=== PATIENT | female | born 1945 | race Caucasian/White ===

== ENCOUNTER 2019-11-26 17:07 | Emergency (ER) | payer MEDICARE, MEDICAID, SELFPAY ==
[2019-11-26] VITALS (10 sets, daily range): BP systolic 143–178; BP diastolic 64–84; PULSE 63–75; RESP 17–21; TEMP 36.6–37.3; O2SAT 86–98; BMI 25.4
--- NOTE | 2019-11-26 17:17 | ED_ITS ---
Entered by Peyton Alicea, acting as scribe for Zara Lawson HPI - Abdominal Pain General: Chief Complaint: Abdominal Pain Stated Complaint: ABD PAIN Time Seen by Provider: 11/26/19 17:13 Source: patient Mode of arrival: EMS Limitations: no limitations History of Present Illness: HPI narrative: 74 yo Female presents to ED from [facility] with complaint of right lower quadrant abdominal pain. Pt states that the pain started this morning. Pt states she was sick yesterday and had diarrhea this morning. Pt states that she had a bloody bowel movement today. MD elicited complaint: abdominal pain Onset (ago): hour(s) (this morning) Location: RLQ Pain scale (0-10): 3 Exacerbating factors: nothing Relieving factors: nothing Associated Symptoms: Reports change in bowel habits, diarrhea and hematochezia; Denies chills, dysuria, fever(s), hematuria and syncope Review of Systems General: Reports: other (negative unless marked) Const: Denies: fever, chills, body aches, fatigue, malaise or diaphoresis Eyes: Denies: change in vision or blurry vision ENMT: Denies: throat pain, painful swallowing, hoarseness, ear pain, ear discharge, Change in hearing or nasal discharge Card: Denies: chest pain, palpitations, irregular heart rhythm, syncope, pre- syncope, shortness of breath on exertion or shortness of breath when lying down Resp: Denies: shortness of breath, productive cough, non-productive cough, wheezing, coughing up blood or chest congestion GI: Reports: abdominal pain, diarrhea, change in bowel habits and blood in stool : Denies: flank pain, painful urination, urinary frequency, urinary urgency, decreased urine ouput, urinary incontinence or blood in urine Musc: Denies: neck pain, back pain, extremity pain, extremity swelling, joint pain, joint swelling, joint warmth or joint stiffness Skin/Breast: Denies: rash, skin tenderness or yellow skin Neuro: Denies: headache, numbness in extremities, weakness in extremities, changes in sensation, lack of coordination, difficulty walking, dizziness, vertigo or confusion Endo: Denies: excessive thirst, tired all the time, cold intolerance, excessive sweating, flushing or hot flashes Marco/Lymph: Denies: easy bruising, easy bleeding, petechiae or enlarged lymph nodes All/Imm: Denies: hives, throat swelling, tongue swelling, facial swelling or acute wheezing PFSH ED PFSH: Statuses (acute, chronic, etc) shown below reflect problem list status as previously entered and may not be historically accurate Medical History (Updated 11/26/19 @ 20:25 by Zara Lawson) Anxiety (Acute) Cancer (Acute) COPD (chronic obstructive pulmonary disease) (Acute) Diabetes (Acute) DVT (deep venous thrombosis) (Acute) GERD (gastroesophageal reflux disease) (Acute) HTN (hypertension) (Acute) Hyperlipidemia (Acute) Hyponatremia (Acute) Myocardial infarction (Acute) Renal failure (Acute) Surgical History (Updated 11/26/19 @ 17:44 by Peyton Alicea) History of bariatric surgery (Acute) History of hysterectomy (Acute) Social History Smoking and tobacco status: former smoker Physical Exam Const: COMMON NORMALS: no apparent distress, oriented x3, no limitations, healthy appearing and well nourished EXAM LIMITATIONS: no altered mental status GENERAL APPEARANCE: cooperative, well kempt and well developed ORIENTATION/CONSCIOUSNESS: Yes awake HENMT: COMMON NORMALS: normocephalic, head/scalp atraumatic, hearing grossly normal bilaterally, external ears normal, EAC's normal, external nose normal and moist oral mucous membranes HEAD & SCALP: normal to inspection, normocephalic and atraumatic FACE & SINUS: normal facial exam and face symmetric NOSE: external nose normal and nares normal EXTERNAL EAR: Yes external ears normal EXTERNAL AUDITORY CANAL: EAC's normal MOUTH: oral and palatal mucosa normal and tongue normal Eye: COMMON NORMALS: PERRL, EOMs intact bilaterally, conjunctivae normal and no scleral icterus GENERAL EYE: normal appearance of both eyes and normal light reflex CONJUNCTIVA: Yes conjunctivae normal SCLERA: sclerae normal CORNEA: Yes corneas normal PUPIL: Yes PERRL DIRECT OPHTHALMOSCOPY: Yes normal light reflex Neck/C-Spine: COMMON NORMALS: full ROM, no lymphadenopathy, supple, no meningeal signs and no JVD GENERAL: Yes normal visual inspection and Yes trachea midline CERVICAL SPINE: Yes cervical ROM normal Chest: COMMONS NORMALS: inspection of chest normal and palpation of chest normal Resp: COMMON NORMALS: normal respiratory effort, no retractions, no use of accessory muscles and clear to auscultation bilaterally EFFORT & INSPECTION: Yes able to speak in complete sentences AUSCULTATION: clear to auscultation bilaterally Cardio: COMMON NORMALS: no JVD, regular rate, regular rhythm, S1 normal heart sound, S2 normal heart sound, no gallops, no clicks, no murmurs and no rub JUGULAR VENOUS DISTENTION: no JVD RATE: regular rate RHYTHM: regular rhythm HEART SOUNDS: S1 normal and S2 normal GI: COMMON NORMALS: soft to palpation, non-tender, no hepatosplenomegaly and no masses INSPECTION: Yes normal to inspection PALPATION: Yes soft and Yes no hepatosplenomegaly : COMMON NORMALS: Yes no CVA tenderness BLADDER/KIDNEY EXAM: Yes no CVA tenderness Back/Pelvis: COMMON NORMALS: no CVA tenderness, thoracic and lumbar spine normal to inspection, no thoracic nor lumbar tenderness and thoraco-lumbar ROM normal Extremity: COMMON NORMALS: normal to inspection, full ROM, normal capillary refill, no joint enlargement, no clubbing, cyanosis or edema and no calf tenderness Neuro: COMMON NORMALS: oriented x3, CN's II-XII intact bilaterally, moves all extremities, no focal motor deficits and no sensory deficits noted MENINGEAL SIGNS: Yes no meningeal signs Psych: COMMON NORMALS: mental status grossly normal, thought process normal, cooperative, affect normal, speech normal and activity/motor behavior normal APPEARANCE: Yes well kempt SPEECH: Yes normal speech THOUGHT PROCESS: normal thought process Skin: COMMON NORMALS: no rashes or lesions noted, skin turgor normal, no jaundice, no petechiae and no mottling GENERAL SKIN EXAM: no rashes or lesions noted and turgor normal Course Vital Signs: Vital signs: Vital Signs Temperature 98.1 F 11/26/19 21:50 Pulse Rate 66 11/26/19 21:50 Respiratory Rate 18 11/26/19 21:50 Blood Pressure 164/74 11/26/19 21:50 Pulse Oximetry 98 11/26/19 21:15 MDM - Abdominal Pain MDM Narrative: Medical decision making narrative: Patient has a GI bleed with melena. Her hemoglobin is low and she will need an ICU bed which we do not have at this time. I reviewed the case in full with Dr. Mcgill at [facility] and he will accept the patient in transfer. Lab Data: Labs: Lab Results 11/26/19 11/26/19 11/26/19 Range/Units 17:44 17:44 17:44 WBC 9.2 (4.0-10.0) 10^3/ uL RBC 2.42 L (4.1-5.3) 10^6/u L Hgb 7.3 L (11.5-15.3) g/dL Hct 23.6 L (37.0-47.0) % MCV 97.5 (81-99) fL MCH 30.2 (28.0-34.0) pg MCHC 30.9 (30.0-36.0) g/dL RDW 13.6 (12.1-15.1) % Plt Count 227 (130-400) 10^3/c mm MPV 10.0 (7.4-10.4) fL Neut % (Auto) 69.0 % Lymph % (Auto) 24.7 % Arthur % (Auto) 4.9 % Eos % (Auto) 0.7 % Baso % (Auto) 0.3 % Neut # (Auto) 6.4 (1.8-7.7) 10^3/u L Lymph # (Auto) 2.3 (0.8-4.8) 10^3/u L Arthur # (Auto) 0.5 (0.2-0.9) 10^3/u L Eos # (Auto) 0.1 (0.0-0.8) 10^3/u L Baso # (Auto) 0.0 (0.0-0.1) 10^3/u L Nucleated RBC % (a uto) 0 % Nucleated RBCs # 0.0 /100WBC PT 15.10 H (10.5-13.3) SECO NDS INR 1.15 (0.8-1.2) APTT 29.1 (23.9-36.7) SECO NDS Sodium 131 L (136-145) mmol/L Potassium 4.6 (3.5-5.1) mmol/L Chloride 96 L (98-107) mmol/L Carbon Dioxide 20 L (22-29) mmol/L Anion Gap 19.6 H (5-19) BUN 84 H* (8-23) mg/dL Creatinine 2.3 H (0.5-0.9) mg/dL Glucose 114 H (74-106) mg/dL Lactic Acid (0.5-2.2) mmol/L Calcium 9.6 (8.8-10.2) mg/Dl Total Bilirubin 0.2 (0.15-1.2) mg/dL AST 20 (0-32) U/L ALT 10 (0-33) U/L Alkaline Phosphata se 270 H (35-105) IU/L Troponin T Baselin e (0-10) ng/mL Troponin T 120 Min penelope (0-10) ng/mL Delta Troponin T (0-10) ABS# Total Protein 6.8 (6.6-8.7) g/dL Albumin 3.8 (3.5-5.2) g/dL Globulin 3.0 (1.3-4.6) g/dL Blood Type Antibody Screen Crossmatch 11/26/19 11/26/19 11/26/19 Range/Units 17:44 18:43 18:43 WBC (4.0-10.0) 10^3/ uL RBC (4.1-5.3) 10^6/u L Hgb (11.5-15.3) g/dL Hct (37.0-47.0) % MCV (81-99) fL MCH (28.0-34.0) pg MCHC (30.0-36.0) g/dL RDW (12.1-15.1) % Plt Count (130-400) 10^3/c mm MPV (7.4-10.4) fL Neut % (Auto) % Lymph % (Auto) % Arthur % (Auto) % Eos % (Auto) % Baso % (Auto) % Neut # (Auto) (1.8-7.7) 10^3/u L Lymph # (Auto) (0.8-4.8) 10^3/u L Arthur # (Auto) (0.2-0.9) 10^3/u L Eos # (Auto) (0.0-0.8) 10^3/u L Baso # (Auto) (0.0-0.1) 10^3/u L Nucleated RBC % (a uto) % Nucleated RBCs # /100WBC PT (10.5-13.3) SECO NDS INR (0.8-1.2) APTT (23.9-36.7) SECO NDS Sodium (136-145) mmol/L Potassium (3.5-5.1) mmol/L Chloride (98-107) mmol/L Carbon Dioxide (22-29) mmol/L Anion Gap (5-19) BUN (8-23) mg/dL Creatinine (0.5-0.9) mg/dL Glucose (74-106) mg/dL Lactic Acid 1.3 (0.5-2.2) mmol/L Calcium (8.8-10.2) mg/Dl Total Bilirubin (0.15-1.2) mg/dL AST (0-32) U/L ALT (0-33) U/L Alkaline Phosphata se (35-105) IU/L Troponin T Baselin e 35 H (0-10) ng/mL Troponin T 120 Min penelope (0-10) ng/mL Delta Troponin T (0-10) ABS# Total Protein (6.6-8.7) g/dL Albumin (3.5-5.2) g/dL Globulin (1.3-4.6) g/dL Blood Type A Positive Antibody Screen Negative Crossmatch See Detail 11/26/19 Range/Units 20:25 WBC (4.0-10.0) 10^3/ uL RBC (4.1-5.3) 10^6/u L Hgb (11.5-15.3) g/dL Hct (37.0-47.0) % MCV (81-99) fL MCH (28.0-34.0) pg MCHC (30.0-36.0) g/dL RDW (12.1-15.1) % Plt Count (130-400) 10^3/c mm MPV (7.4-10.4) fL Neut % (Auto) % Lymph % (Auto) % Arthur % (Auto) % Eos % (Auto) % Baso % (Auto) % Neut # (Auto) (1.8-7.7) 10^3/u L Lymph # (Auto) (0.8-4.8) 10^3/u L Arthur # (Auto) (0.2-0.9) 10^3/u L Eos # (Auto) (0.0-0.8) 10^3/u L Baso # (Auto) (0.0-0.1) 10^3/u L Nucleated RBC % (a uto) % Nucleated RBCs # /100WBC PT (10.5-13.3) SECO NDS INR (0.8-1.2) APTT (23.9-36.7) SECO NDS Sodium (136-145) mmol/L Potassium (3.5-5.1) mmol/L Chloride (98-107) mmol/L Carbon Dioxide (22-29) mmol/L Anion Gap (5-19) BUN (8-23) mg/dL Creatinine (0.5-0.9) mg/dL Glucose (74-106) mg/dL Lactic Acid (0.5-2.2) mmol/L Calcium (8.8-10.2) mg/Dl Total Bilirubin (0.15-1.2) mg/dL AST (0-32) U/L ALT (0-33) U/L Alkaline Phosphata se (35-105) IU/L Troponin T Baselin e (0-10) ng/mL Troponin T 120 Min penelope 36.29 H (0-10) ng/mL Delta Troponin T 1.29 (0-10) ABS# Total Protein (6.6-8.7) g/dL Albumin (3.5-5.2) g/dL Globulin (1.3-4.6) g/dL Blood Type Antibody Screen Crossmatch Imaging Data ^: CT Abd/Pel: Radiologist's impression: [place] [id number] CT Scan Report Signed Patient: Lindsey Mcnair JMR#: [id number] : 3Acct:[id number] Age/Sex: 74 / FADM Date: 11/26/19 Loc: ER Attending Dr: Ordering Physician: Zara Lawson DO Date of Service: 11/26/19 Procedure(s): CT abdomen pelvis wo con [id number] Accession Number(s): [id number] cc: Zara Lawson DO~ PROCEDURE INFORMATION: Exam: CT Abdomen And Pelvis Without Contrast Exam date and time: 11/26/2019 6:15 PM Age: 74 years old Clinical indication: Abdominal pain; Generalized TECHNIQUE: Imaging protocol: Computed tomography of the abdomen and pelvis without contrast. Total DLP: 723.44 mGy-cm Radiation optimization: All CT scans at this facility use at least one of these dose optimization techniques: automated exposure control; mA and/or kV adjustment per patient size (includes targeted exams where dose is matched to clinical indication); or iterative reconstruction. COMPARISON: CT abdomen pelvis wo con [id number] 09/19/2018 11:26 AM FINDINGS: Tubes, catheters and devices: There is a neurostimulator device. Lungs: Nonspecific bibasilar consolidation is present, consistent with atelectasis, edema, or pneumonia. Mediastinum: A moderate hiatal hernia is present. Liver: Unremarkable.No mass. Gallbladder and bile ducts: There has been a cholecystectomy. Pancreas: Normal. No ductal dilation. Spleen: Normal. No splenomegaly. Adrenals: Normal. No mass. Kidneys and ureters: There is unchanged renal cortical atrophy. Unchanged renal cysts are noted. There is no hydronephrosis or nephrolithiasis. Stomach and bowel: Extensive diverticulosis is present in the distal colon. The wall of the sigmoid colon appears mildly thickened similar to the prior exam. This may reflect mild colitis or just lack of distension. There is no new bowel thickening. No ileus or obstruction. Appendix: No evidence of appendicitis. Intraperitoneal space: Unremarkable. No free air. No significant fluid collection. Vasculature: Moderate to severe atherosclerotic changes are noted in the abdominal aorta. There is unchanged 3.2 cm aneurysmal dilatation of the distal. Lymph nodes: Unremarkable.No enlarged lymph nodes. Bladder: The bladder is obscured by arthroplasty artifact. Reproductive: Unremarkable as visualized. Bones/joints: Unremarkable. No acute fracture. Soft tissues: Unremarkable. CT/CT abdomen pelvis con [id number] IMPRESSION: 1. Nonspecific bibasilar consolidation is present, consistent with atelectasis, edema, or pneumonia. 2. Unchanged 3.2 cm aneurysmal dilatation of the distal abdominal aorta. 3. The wall of the distal colon appears mildly thickened unchanged since the prior exam. This may reflect recurrence mild colitis or just lack of distension. Radiation Dose CTDIVOL = (mGy): DLP = 723.44 (mGy-cm) Dictated By: Fadia Landis 11/26/191941 Signed By: Fadia Landis 11/26/191943 Discharge Plan Discharge Patient Disposition: Xfer Short-Term Hosp Clinical Impression: GI bleed Qualifiers: GI bleed type/associated pathology: melena Qualified Code(s): K92.1 - Melena Anemia Qualifiers: Anemia type: other cause Other causes of anemia: other cause, not classified Qualified Code(s): D64.89 - Other specified anemias Condition: Stable Referrals: Nasreen Montana MD [Family Provider] - Discharge Date/Time: 11/26/19 22:14 Coding Level of Care Code ED [employer] for Chg Fwd Exam Problem Focused The documentation recorded by the Deanne davey Carmen, accurately reflects the service I personally performed and the decisions made by Renny muñoz Eli N Nov 26, 2019 17:07
--- NOTE | 2019-11-26 17:24 | CTR_ITS ---
PROCEDURE INFORMATION: Exam: CT Abdomen And Pelvis Without Contrast Exam date and time: 11/26/2019 6:15 PM Age: 74 years old Clinical indication: Abdominal pain; Generalized TECHNIQUE: Imaging protocol: Computed tomography of the abdomen and pelvis without contrast. Total DLP: 723.44 mGy-cm Radiation optimization: All CT scans at this facility use at least one of these dose optimization techniques: automated exposure control; mA and/or kV adjustment per patient size (includes targeted exams where dose is matched to clinical indication); or iterative reconstruction. COMPARISON: CT abdomen pelvis wo con [id number] 09/19/2018 11:26 AM FINDINGS: Tubes, catheters and devices: There is a neurostimulator device. Lungs: Nonspecific bibasilar consolidation is present, consistent with atelectasis, edema, or pneumonia. Mediastinum: A moderate hiatal hernia is present. Liver: Unremarkable.No mass. Gallbladder and bile ducts: There has been a cholecystectomy. Pancreas: Normal. No ductal dilation. Spleen: Normal. No splenomegaly. Adrenals: Normal. No mass. Kidneys and ureters: There is unchanged renal cortical atrophy. Unchanged renal cysts are noted. There is no hydronephrosis or nephrolithiasis. Stomach and bowel: Extensive diverticulosis is present in the distal colon. The wall of the sigmoid colon appears mildly thickened similar to the prior exam. This may reflect mild colitis or just lack of distension. There is no new bowel thickening. No ileus or obstruction. Appendix: No evidence of appendicitis. Intraperitoneal space: Unremarkable. No free air. No significant fluid collection. Vasculature: Moderate to severe atherosclerotic changes are noted in the abdominal aorta. There is unchanged 3.2 cm aneurysmal dilatation of the distal. Lymph nodes: Unremarkable.No enlarged lymph nodes. Bladder: The bladder is obscured by arthroplasty artifact. Reproductive: Unremarkable as visualized. Bones/joints: Unremarkable. No acute fracture. Soft tissues: Unremarkable. CT/CT abdomen pelvis wo con [id number] IMPRESSION: 1. Nonspecific bibasilar consolidation is present, consistent with atelectasis, edema, or pneumonia. 2. Unchanged 3.2 cm aneurysmal dilatation of the distal abdominal aorta. 3. The wall of the distal colon appears mildly thickened unchanged since the prior exam. This may reflect recurrence mild colitis or just lack of distension. Radiation Dose CTDIVOL = (mGy): DLP = 723.44 (mGy-cm)
--- NOTE | 2019-11-26 17:25 | XR_ITS ---
WS: [id number] PORTABLE CHEST HISTORY: cough COMPARISON: 09/26/2018 Slight elevation of the LEFT hemidiaphragm is stable. Diffuse coarsened interstitial markings. There is a more focal increasing interstitial opacification at the RIGHT lung base. Vasculature remains nor mal. No pleural effusion or pneumothorax. Cardiac size: Normal. Mediastinum/Aorta: Moderate atherosclerosis aorta. Prior RIGHT humeral head replacement. Rib fractures in the lateral RIGHT thorax. XR/XR chest 1V portable [id number] IMPRESSION: 1. New subsegmental opacification at the RIGHT lung base suspicious for atelec tasis or pneumonitis. 2. Chronic emphysema and atherosclerosis aorta.
[2019-11-26 18:07] LABS: Basophils % 0.3 %; Eosinophils # 0.1 10^3/uL (0.0-0.8); Eosinophils % 0.7 %; Hematocrit 23.6 % (37.0-47.0); Hemoglobin 7.3 g/dL (11.5-15.3); Lymphocytes # 2.3 10^3/uL (0.8-4.8); Lymphocytes % 24.7 %; Mean Corpuscular HGB Conc 30.9 g/dL (30.0-36.0); Mean Corpuscular Hemoglobin 30.2 pg (28.0-34.0); Mean Corpuscular Volume 97.5 fL (81-99); Monocytes # 0.5 10^3/uL (0.2-0.9); Monocytes % 4.9 %; Neutrophils # 6.4 10^3/uL (1.8-7.7); Nucleated Red Blood Cells % 0 %; Platelet Count 227 10^3/cmm (130-400); Red Blood Count 2.42 10^6/uL (4.1-5.3); Red Cell Distribution Width 13.6 % (12.1-15.1); White Blood Count 9.2 10^3/uL (4.0-10.0)
[2019-11-26 18:09] LABS: Alanine Aminotransferase 10 U/L (0-33); Albumin Level 3.8 g/dL (3.5-5.2); Alkaline Phosphatase 270 IU/L (35-105); Anion Gap 19.6 (5-19); Aspartate Amino Transferase 20 U/L (0-32); Calcium 9.6 mg/Dl (8.8-10.2); Carbon Dioxide 20 mmol/L (22-29); Chloride 96 mmol/L (98-107); Glucose 114 mg/dL (74-106); Potassium 4.6 mmol/L (3.5-5.1); Sodium 131 mmol/L (136-145); Total Bilirubin 0.2 mg/dL (0.15-1.2); Total Protein 6.8 g/dL (6.6-8.7)
[2019-11-26 18:12] LABS: Blood Urea Nitrogen 84 mg/dL (8-23)
[2019-11-26] MEDS: ondansetron 2 mg/ML SDV 2 mL 4 MG IVP (18:16)
[2019-11-26] MEDS: sodium chloride 0.9% 1,000 ML 100 ML IV (18:17)
--- NOTE | 2019-11-26 18:24 | ECG_ITS ---
Measurements Intervals [place] Rate: 66 P: -8 [place]: 163 QRS: -35 QRSD: 106 T: 75 QT: 415 QTc: 438 SINUS RHYTHM WITH OCCASIONAL VENTRICULAR PREMATURE COMPLEXES LEFT AXIS DEVIATION [QRS AXIS < -30] LEFT VENTRICULAR HYPERTROPHY AND ST-T CHANGE [VOLTAGE CRITERIA PLUS ST/T AB ABNORMALITY] Compared to ECG 09/22/2018 10:13:15 Left-axis deviation now present Left ventricular hypertrophy now present ST (T wave) deviation now present Atrial fibrillation no longer present Aberrant conduction of supraventricular beat(s) no longer present Myocardial infarct finding no longer present Electronically Signed On 11-26-2019 20:44:16 WORKSITE WELLNESS PRACTITIONER by Janine Ruiz M.D. [id number]
[2019-11-26 18:29] LABS: INR 1.15 (0.8-1.2)
[2019-11-26 18:30] LABS: Partial Thromboplastin Time 29.1 SECONDS (23.9-36.7)
[2019-11-26 19:06] LABS: Lactic Sepsis W/Reflex 1.3 mmol/L (0.5-2.2)
[2019-11-26 19:08] LABS: Troponin(5th) Baseline 35 ng/mL (0-10)
--- NOTE | 2019-11-26 20:24 | ECG_ITS ---
Measurements Intervals [place] Rate: 68 P: 31 NM: 123 QRS: -35 QRSD: 109 T: 84 QT: 429 QTc: 459 SINUS RHYTHM WITH OCCASIONAL VENTRICULAR PREMATURE COMPLEXES LEFT AXIS DEVIATION [QRS AXIS < -30] LEFT VENTRICULAR HYPERTROPHY AND ST-T CHANGE [VOLTAGE CRITERIA PLUS ST/T AB ABNORMALITY] Compared to ECG 11/26/2019 18:38:09 No significant changes Electronically Signed On 11-27-2019 19:22:35 MOTOR VEHICLE CLERK by Radha Chu M.D. [id number]
[2019-11-26 20:45] LABS: Troponin 5 2HR 36.29 ng/mL (0-10)
[2019-11-26 21:27] LABS: Troponin 5 2HR Delta 1.29 ABS# (0-10)
--- NOTE | 2019-11-26 21:54 | PC.NURSE ---
2nd unit of blood started immediately after 1st unit completed, patient had no s/s transfusion reaction. [employer] RN Mike Philip given report on blood transfusion and continued administration taken over at 21:55
[2019-11-28 09:36] LABS: ABG PCO2 33.2 mmHg (35-45); ABG PH Result 7.37 (7.35-7.45); Arterial Blood Gas Hematocrit 24.9 % (37-47); Base Excess ABG -5.7 mmol/L (-2.0-2.0); Blood Gas Allen Test Pos; Blood Gas Sample Site Radial, left; Blood Gas Sample Type Arterial; PO2 ABG 69.3 mmHg (80.0-100.0)
[2019-11-28 09:37] LABS: Oxygen Device ROOM AIR
== END 2019-11-26 22:14 | disposition short-term general hospital (02) ==
PROVIDERS: Emergency Provider Emergency Medicine; Family Provider Family Medicine
DX: K92.1 Melena (principal); D64.9 Anemia, unspecified; J44.9 Chronic obstructive pulmonary disease, unspecified; E11.9 Type 2 diabetes mellitus without complications; I10 Essential (primary) hypertension; E78.5 Hyperlipidemia, unspecified; I25.2 Old myocardial infarction; Z87.891 Personal history of nicotine dependence
CPT/HCPCS: 36415; 36430; 36600; 51702; 71045; 74176; 80053; 82803; 83605; 84484; 85025; 85610; 85730; 86850; 86900; 93005; 96360; 96365; 96366; 96374; 99283; J0131; J2405; J7030; P9016

== ENCOUNTER 2019-12-19 22:36 | Emergency (ER) | payer MEDICARE, MEDICAID, SELFPAY ==
[2019-12-19 22:38] VITALS: BP 204/119; PULSE 70; RESP 20; TEMP 37.3; O2SAT 96; BMI 26.6
--- NOTE | 2019-12-19 22:45 | XR_ITS ---
WS: [id number] Portable AP upright chest, 12/19/2019 Clinical Data: high blood pressure Comparison: Portable chest, 11/26/2019 Findings: No nodules, masses or effusions are seen. The heart is normal. The pulmonary vascularity is not increased. No pneumonia or pneumothorax is seen. There is right pleural thickening adjacent to h ealed right lateral rib fractures. The aortic arch and descending aorta show calcification and tortuo sity. Minimal bilateral interstitial thickening is seen which probably indicates chronic lung disease . There is a right shoulder arthroplasty. XR/XR chest 1V portable [id number] Impression: 1. Chronic interstitial lung disease. 2. Atherosclerosis.
--- NOTE | 2019-12-19 22:46 | ECG_ITS ---
Measurements Intervals [place] Rate: 74 P: 37 SC: 147 QRS: -36 QRSD: 106 T: 38 QT: 346 QTc: 384 SINUS RHYTHM LEFT AXIS DEVIATION [QRS AXIS < -30] LEFT VENTRICULAR HYPERTROPHY AND ST-T CHANGE [VOLTAGE CRITERIA PLUS ST/T AB ABNORMALITY] Compared to ECG 11/26/2019 19:57:50 Ventricular premature complex(es) no longer present ST (T wave) deviation still present Electronically Signed On 12-20-2019 11:32:01 CARPET INSTALLATION SPECIALIST by Sunil Garg M.D. [id number]
--- NOTE | 2019-12-19 22:51 | PC.NURSE ---
Pt stated loss of urine control, adult briefs changed upon ED arrival
--- NOTE | 2019-12-19 22:58 | ED_ITS ---
HPI - General Adult General: Chief complaint: General Medical Stated complaint: HIGH BLOOD PRESSURE Time Seen by Provider: 12/19/19 22:45 Source: patient Mode of arrival: ambulatory Limitations: no limitations History of Present Illness: HPI narrative: Patient is a resident of a residential and was brought in by EMS for concerns of elevated blood pressure. Patient had been given her routine amlodipine and 3 doses of clonidine without success of lowering blood pressure. Patient denies any chest pain or difficulty breathing. Patient appears well. Patient appears in no pain. Associated symptoms: Deny chest pain Review of Systems General: Reports: 10 or more systems reviewed and unremarkable except in HPI and below Card: Denies: chest pain PFSH ED PFSH: Statuses (acute, chronic, etc) shown below reflect problem list status as previously entered and may not be historically accurate Medical History (Updated 12/20/19 @ 00:47 by ANIA Duran) Anxiety (Acute) Cancer (Acute) COPD (chronic obstructive pulmonary disease) (Acute) Diabetes (Acute) DVT (deep venous thrombosis) (Acute) GERD (gastroesophageal reflux disease) (Acute) HTN (hypertension) (Acute) Hyperlipidemia (Acute) Hyponatremia (Acute) Myocardial infarction (Acute) Renal failure (Acute) Surgical History (Updated 11/26/19 @ 17:44 by Peyton Alicea) History of bariatric surgery (Acute) History of hysterectomy (Acute) Social History Smoking and tobacco status: former smoker Physical Exam Const: COMMON NORMALS: no apparent distress and oriented x3 GENERAL APPE ARANCE: cooperative HENMT: COMMON NORMALS: normocephalic, external ears normal, EAC's normal, TM's normal bilaterally and external nose normal HEAD & SCALP: normal to inspection and normocephalic FACE & SINUS: normal facial exam NOSE: external nose normal GENERAL EAR: hearing not grossly impaired EXTERNAL EAR: Yes external ears normal EXTERNAL AUDITORY CANAL: EAC's normal TYMPANIC MEMBRANE: TM's normal bilaterally MOUTH: oral and palatal mucosa normal THROAT: posterior oropharynx normal Eye: COMMON NORMALS: PERRL and EOMs intact bilaterally PUPIL: Yes PERRL Neck/C-Spine: COMMON NORMALS: full ROM and no lymphadenopathy Lymph: LYMPHATIC: no lymphedema noted Chest: COMMONS NORMALS: inspection of chest normal and palpation of chest normal Resp: COMMON NORMALS: normal respiratory effort and clear to auscultation bilaterally AUSCULTATION: clear to auscultation bilaterally Cardio: COMMON NORMALS: regular rate and regular rhythm RATE: regular rate RHYTHM: regular rhythm GI: COMMON NORMALS: normal to inspection, nondistended, normoactive bowel sounds and non-tender : COMMON NORMALS: Yes no CVA tenderness BLADDER/KIDNEY EXAM: Yes no CVA tenderness Back/Pelvis: COMMON NORMALS: no CVA tenderness and thoracic and lumbar spine normal to inspection Extremity: COMMON NORMALS: normal to inspection GENERAL: No edema Neuro: COMMON NORMALS: oriented x3, moves all extremities and no focal motor deficits Psych: COMMON NORMALS: mental status grossly normal and cooperative Skin: COMMON NORMALS: no rashes or lesions noted GENERAL SKIN EXAM: no rashes or lesions noted Course Vital Signs: Vital signs: Vital Signs Temperature 99.2 F 12/19/19 22:38 Pulse Rate 76 12/20/19 01:32 Respiratory Rate 18 12/20/19 01:32 Blood Pressure 198/119 12/20/19 01:32 Pulse Oximetry 96 12/20/19 01:32 MDM - General Adult MDM Narrative: Medical decision making narrative: Patient comes in tonight with poor control of blood pressure. Patient is a resident at the residential and was given an extra dose of metoprolol, amlodipine, and 3 doses of 0.1 clonidine. Blood pressure still maintained above 200 and patient was sent to the ER for evaluation. Patient denied any chest pain. Exam was unremarkable except for elevation of blood pressure. Differential diagnosis include ACS, CHF, uncontrolled hypertension, anxiety, pain. Patient laboratory values were significant for elevated BNP. Chest x-ray noted some vascular congestion mild, but resolution of previous pneumonia. Lab was also significant for mild decrease in potassium at 3.4 and a decreased magnesium at 1.6. Patient was medicated with Nitrostat, magnesium, labetalol 20 mg, 20 mg of furosemide and 40 mg of potassium. Reviewed with patient recommended continued treatment with furosemide for the next 7 days along with potassium. Suspect some mild CHF due to uncontrolled hypertension. Discussed recommendations for follow-up with primary care for further evaluation and treatment. long-term will be informed of in ER discharge. Also during patient stay she was medicated with hydrocodone for some shoulder pain that is chronic for her and was also given 1 dose of alprazolam which she takes routinely for anxiety. Lab Data: Labs: Lab Results 12/19/19 12/19/19 12/19/19 Range/Units 23:13 23:13 23:13 WBC 6.9 (4.0-10.0) 10^3/ uL RBC 3.83 L (4.1-5.3) 10^6/u L Hgb 11.5 (11.5-15.3) g/dL Hct 35.9 L (37.0-47.0) % MCV 93.7 (81-99) fL MCH 30.0 (28.0-34.0) pg MCHC 32.0 (30.0-36.0) g/dL RDW 14.3 (12.1-15.1) % Plt Count 255 (130-400) 10^3/c mm MPV 9.6 (7.4-10.4) fL Neut % (Auto) 81.3 % Lymph % (Auto) 16.2 % [place] % (Auto) 1.7 % Eos % (Auto) 0.0 % Baso % (Auto) 0.1 % Neut # (Auto) 5.6 (1.8-7.7) 10^3/u L Lymph # (Auto) 1.1 (0.8-4.8) 10^3/u L [place] # (Auto) 0.1 L (0.2-0.9) 10^3/u L Eos # (Auto) 0.0 (0.0-0.8) 10^3/u L Baso # (Auto) 0.0 (0.0-0.1) 10^3/u L Nucleated RBC % (a uto) 0 % Nucleated RBCs # 0.0 /100WBC Sodium 131 L (136-145) mmol/L Potassium 3.4 L (3.5-5.1) mmol/L Chloride 93 L (98-107) mmol/L Carbon Dioxide 22 (22-29) mmol/L Anion Gap 19.4 H (5-19) BUN 22 (8-23) mg/dL Creatinine 2.2 H (0.5-0.9) mg/dL Glucose 202 H (74-106) mg/dL Calcium 10.1 (8.5-10.5) mg/dL Magnesium 1.6 L (1.7-2.3) mg/dL Total Bilirubin 0.4 (0.15-1.2) mg/dL AST 20 (0-32) U/L ALT 8 (0-33) U/L Alkaline Phosphata se 292 H (35-105) IU/L Troponin T Baselin e 28 H (0-10) ng/mL Troponin T 120 Min little [place] tribe (0-10) ng/mL Delta Troponin T (0-10) ABS# NT-Pro-B Natriuret Pep 23142 H (0-450) pg/mL Total Protein 7.6 (6.6-8.7) g/dL Albumin 3.9 (3.5-5.2) g/dL Globulin 3.7 (1.3-4.6) g/dL 12/20/19 Range/Units 00:36 WBC (4.0-10.0) 10^3/ uL RBC (4.1-5.3) 10^6/u L Hgb (11.5-15.3) g/dL Hct (37.0-47.0) % MCV (81-99) fL MCH (28.0-34.0) pg MCHC (30.0-36.0) g/dL RDW (12.1-15.1) % Plt Count (130-400) 10^3/c mm MPV (7.4-10.4) fL Neut % (Auto) % Lymph % (Auto) % [place] % (Auto) % Eos % (Auto) % Baso % (Auto) % Neut # (Auto) (1.8-7.7) 10^3/u L Lymph # (Auto) (0.8-4.8) 10^3/u L [place] # (Auto) (0.2-0.9) 10^3/u L Eos # (Auto) (0.0-0.8) 10^3/u L Baso # (Auto) (0.0-0.1) 10^3/u L Nucleated RBC % (a uto) % Nucleated RBCs # /100WBC Sodium (136-145) mmol/L Potassium (3.5-5.1) mmol/L Chloride (98-107) mmol/L Carbon Dioxide (22-29) mmol/L Anion Gap (5-19) BUN (8-23) mg/dL Creatinine (0.5-0.9) mg/dL Glucose (74-106) mg/dL Calcium (8.5-10.5) mg/dL Magnesium (1.7-2.3) mg/dL Total Bilirubin (0.15-1.2) mg/dL AST (0-32) U/L ALT (0-33) U/L Alkaline Phosphata se (35-105) IU/L Troponin T Baselin e (0-10) ng/mL Troponin T 120 Min [place] 27.84 H (0-10) ng/mL Delta Troponin T -0.16 L (0-10) ABS# NT-Pro-B Natriuret Pep (0-450) pg/mL Total Protein (6.6-8.7) g/dL Albumin (3.5-5.2) g/dL Globulin (1.3-4.6) g/dL EKG Data^: EKG 1: Attestation: I personally reviewed and interpreted this EKG as follows: (2258, sinus rhythm rate 74, rare PVC, no ST elevation, Left axis deviation, no changes from 11/26/19) EKG 2: Attestation: I personally reviewed and interpreted this EKG as follows: (0040, no change in patient ekg from first exam, rate 73 regular, occasional PVC, No ST elevation) Discharge Plan Discharge Patient Disposition: Home, Self-Care Clinical Impression: Hypertension Qualifiers: Hypertension type: unspecified Qualified Code(s): I10 - Essential (primary) hypertension CHF (congestive heart failure) Qualifiers: Heart failure type: combined systolic and diastolic Heart failure chronicity: unspecified Qualified Code(s): I50.40 - Unspecified combined systolic (congest oscar) and diastolic (congestive) heart failure Condition: Stable Prescriptions: New furosemide 20 mg tablet 20 mg PO DAILY Qty: 7 RF: 0 potassium chloride 10 mEq capsule, extended release 10 meq PO DAILY Qty: 10 RF: 0 No Action acetaminophen 325 mg tablet RF: 0 acetaminophen 325 mg tablet 325 mg PO TID PRN (Reason: Pain) RF: 0 amlodipine 10 mg tablet 10 mg PO DAILY RF: 0 cyclobenzaprine 10 mg tablet 10 mg PO TID PRN (Reason: headache) RF: 0 duloxetine 60 mg capsule,delayed release(DR/EC) 60 mg PO DAILY RF: 0 donepezil 5 mg tablet 5 mg PO DAILY RF: 0 Dulcolax (bisacodyl) 10 mg Suppository 10 mg AK PRN (Reason: Constipation) RF: 0 levothyroxine 75 mcg tablet 75 mcg PO DAILY RF: 0 metoprolol tartrate 25 mg tablet 25 mg PO BID RF: 0 Ocuvite with Lutein RF: 0 Senna-S 8.6-50 mg tablet 1 tab PO BID RF: 0 trazodone 50 mg tablet 50 mg PO DAILY RF: 0 pantoprazole 40 mg tablet,delayed release (DR/EC) 40 mg PO BID RF: 0 sodium bicarbonate 650 mg tablet 650 mg PO DAILY RF: 0 ferrous sulfate 325 mg (65 mg iron) Tablet 325 mg PO DAILY RF: 0 alprazolam 0.25 mg tablet 0.25 mg PO DAILY RF: 0 clonidine HCl 0.1 mg Tablet 0.1 mg PO TID RF: 0 Discharge Orders: Discharge Order (Routine); Ordered 12/20/19 Ordered By: Darren Chase Referrals: Nasreen Montana MD [Family Provider] - Edwardo Angeles Jr, MD [Primary Care Provider] - Discharge Diet: Usual diet Discharge Activity: Resume usual activity Patient Instructions: Hypertension (ED) Activity Restrictions/Additional Instructions: Home and rest Medications as directed Follow-up with primary care in one week Return to ER for shortness of breath, or worsening chest pain Coding Level of Care Code ED Cardiac Rehab Nurse for [employer] Exam Problem Focused
[2019-12-19 23:06] VITALS: BP 211/102; PULSE 73; RESP 20; O2SAT 96
[2019-12-19] MEDS: nitroglycerin 1 gm/inch oint Pkt 1 INCH TOPICAL (23:12)
[2019-12-19 23:24] LABS: Basophils % 0.1 %; Hematocrit 35.9 % (37.0-47.0); Hemoglobin 11.5 g/dL (11.5-15.3); Lymphocytes # 1.1 10^3/uL (0.8-4.8); Lymphocytes % 16.2 %; Mean Corpuscular Volume 93.7 fL (81-99); Mean Platelet Volume 9.6 fL (7.4-10.4); Monocytes # 0.1 10^3/uL (0.2-0.9); Monocytes % 1.7 %; Neutrophils # 5.6 10^3/uL (1.8-7.7); Neutrophils % 81.3 %; Nucleated Red Blood Cells % 0 %; Platelet Count 255 10^3/cmm (130-400); Red Blood Count 3.83 10^6/uL (4.1-5.3); Red Cell Distribution Width 14.3 % (12.1-15.1); White Blood Count 6.9 10^3/uL (4.0-10.0)
[2019-12-19 23:53] LABS: Troponin(5th) Baseline 28 ng/mL (0-10)
[2019-12-20 00:02] LABS: Alanine Aminotransferase 8 U/L (0-33); Albumin Level 3.9 g/dL (3.5-5.2); Alkaline Phosphatase 292 IU/L (35-105); Anion Gap 19.4 (5-19); Aspartate Amino Transferase 20 U/L (0-32); Blood Urea Nitrogen 22 mg/dL (8-23); Calcium 10.1 mg/dL (8.5-10.5); Carbon Dioxide 22 mmol/L (22-29); Chloride 93 mmol/L (98-107); Globulin 3.7 g/dL (1.3-4.6); Glucose 202 mg/dL (74-106); Magnesium 1.6 mg/dL (1.7-2.3); Potassium 3.4 mmol/L (3.5-5.1); Sodium 131 mmol/L (136-145); Total Bilirubin 0.4 mg/dL (0.15-1.2); Total Protein 7.6 g/dL (6.6-8.7)
[2019-12-20 00:06] VITALS: BP 163/104; PULSE 81; RESP 17; O2SAT 94
[2019-12-20 00:27] LABS: NT Pro B Type Natriuretic Pept 39490 pg/mL (0-450)
--- NOTE | 2019-12-20 00:37 | PC.NURSE ---
EKG done at 0034 and shown to ER Nurse Practitioner
[2019-12-20] MEDS: HYDROcodone-acetaminophen 5-325 mg Tablet 1 TAB PO (00:39)
--- NOTE | 2019-12-20 00:46 | ECG_ITS ---
Measurements Intervals [place] Rate: 73 P: 47 NE: 132 QRS: -29 QRSD: 103 T: 58 QT: 420 QTc: 463 SINUS RHYTHM WITH OCCASIONAL VENTRICULAR PREMATURE COMPLEXES BORDERLINE LEFT AXIS DEVIATION [QRS AXIS < -20] LEFT VENTRICULAR HYPERTROPHY AND ST-T CHANGE [VOLTAGE CRITERIA PLUS ST/T ABNORMALITY] Compared to ECG 11/26/2019 19:57:50 No significant changes Electronically Signed On 12-20-2019 11:37:06 BIOSECURITY OFFICER by Sunil Garg M.D. [email or web address]
[2019-12-20] MEDS: FUROsemide 10 mg/mL SDV 2mL 20 MG IVP (00:51)
[2019-12-20] MEDS: magnesium sulfate premix 2 GM/50 ML PIGGYBACK IV (00:57)
[2019-12-20 00:58] LABS: Troponin 5 2HR 27.84 ng/mL (0-10)
[2019-12-20 01:01] LABS: Troponin 5 2HR Delta -0.16 ABS# (0-10)
[2019-12-20] MEDS: ALPRAZolam 0.25 mg Tablet PO (01:30)
[2019-12-20] MEDS: labetalol 5 mg/mL SDV 20mL 20 MG IVP (01:30)
[2019-12-20 01:32] VITALS: BP 198/119; PULSE 76; RESP 18; O2SAT 96
[2019-12-20 01:59] VITALS: BP 185/98; PULSE 74; RESP 17; O2SAT 95
== END 2019-12-20 02:26 | disposition home or self-care (01) ==
PROVIDERS: Emergency Provider Nurse Practitioner Family; Family Provider Family Medicine; PCP Family Medicine
DX: I11.0 Hypertensive heart disease with heart failure (principal); I50.40 Unspecified combined systolic (congestive) and diastolic (congestive) heart failure; J44.9 Chronic obstructive pulmonary disease, unspecified; E11.9 Type 2 diabetes mellitus without complications; E78.5 Hyperlipidemia, unspecified; K21.9 Gastro-esophageal reflux disease without esophagitis; I25.2 Old myocardial infarction; Z87.891 Personal history of nicotine dependence
CPT/HCPCS: 36415; 71045; 80053; 83735; 83880; 84484; 85025; 93005; 96365; 96374; 99283; J1940; J3475; J3490

== ENCOUNTER 2020-01-02 13:22 | Outpatient (CLI) | payer MEDICARE, MEDICAID, SELFPAY ==
--- NOTE | 2020-01-02 13:35 | CT_ITS ---
WS: [id number] CT ORBITS, NONCONTRAST. HISTORY: UNSPECIFIED HEARING LOSS, L EAR Technique: All CT scans at [facility] use at least one of these dose optimization techniq ues: automated exposure control; mA and/or kV adjustment per patient size (includes targeted exams wh ere dose is matched to clinical indication); or iterative reconstruction. DLP: 514.57 mGy-cm. COMPARISON: None available. Soft tissues of the orbits and globes is normal. No exophthalmus or mass. Heavy calcification in the LEFT carotid artery and mild on the RIGHT. Oropharynx and retropharynx are negative. Osteomas LEFT fr ontal sinus. Remaining sinuses are clear. Mastoid air cells are well aerated. No destruction of the m astoid air cells. No fluid or mass or soft tissue along the internal or external auditory canals. CT/CT orbit BI wo con* [id number] IMPRESSION: 1. Negative noncontrast CT evaluation of the orbits. 2. Negative mastoid air cells. 3. Atherosclerosis carotid arteries.
== END 2020-01-02 13:23 | disposition home or self-care (01) ==
LOC: RAD 13:30
PROVIDERS: Family Provider Family Medicine; PCP Family Medicine; Visit Provider Specialist
DX: H91.92 Unspecified hearing loss, left ear (principal); I65.29 Occlusion and stenosis of unspecified carotid artery
CPT/HCPCS: 70480

== ENCOUNTER 2020-01-23 08:09 | Outpatient (CLI) | payer MEDICARE, MEDICAID, SELFPAY ==
--- NOTE | 2020-01-23 08:31 | CT_ITS ---
WS: [id number] CT HEAD TECHNIQUE: Noncontrast CT of the head obtained from the skullbase to the vertex. CONTRAST NOT ADMINIS TERED DUE TO INABILITY TO OBTAIN IV ACCESS AND ALSO RENAL INSUFFICIENCY WITH ELEVATED GFR. CLINICAL INFORMATION: UNSPECIFIED HEARING LOSS LEFT EAR COMPARISON: CT 018 DLP: 992.[address] scans at [facility] use at least one of these dose optimization techniques: automat ed exposure control; mA and/or kV adjustment per patient size (includes targeted exams where dose is matched to clinical indication); or iterative reconstruction. FINDINGS: No evidence of intracranial hemorrhage or mass effect. Ventricular system and basal cisterns are li nt. Moderate small vessel changes with mild parenchymal volume loss. No extra-axial fluid collections . No evidence of mass or mass effect. Normal maurer-white differentiation. Left frontal sinus osteomas.Sinuses are otherwise well aerated. Mastoid air cells well aerated. CT/CT head wo con* [id number] IMPRESSION: 1. No evidence of intracranial hemorrhage or mass effect. 2. Moderate small vessel changes with mild parenchymal volume loss. 3. Intracranial vascular calcification. 4. Left frontal sinus osteomas unchanged since 2018. Paranasal sinuses and mas toid air cells otherwise well aerated.
== END 2020-01-23 08:10 | disposition home or self-care (01) ==
PROVIDERS: Family Provider Family Medicine; PCP Family Medicine; Visit Provider Specialist
DX: D16.4 Benign neoplasm of bones of skull and face (principal); H91.92 Unspecified hearing loss, left ear; G93.89 Other specified disorders of brain
CPT/HCPCS: 70450

== ENCOUNTER 2020-03-08 09:47 | Emergency (ER) | payer MEDICARE, MEDICAID, SELFPAY ==
[2020-03-08] VITALS (13 sets, daily range): BP systolic 161–190; BP diastolic 81–98; PULSE 60–72; RESP 16–18; TEMP 36.7; O2SAT 100; BMI 25.1
--- NOTE | 2020-03-08 09:58 | CTR_ITS ---
PROCEDURE INFORMATION: Exam: CT Head Without Contrast Exam date and time: 03/08/2020 9:59 AM Age: 74 years old Clinical indication: Other: Left side weakness and hit left side of face; Additional info: Left sided weakness TECHNIQUE: Imaging protocol: Computed tomography of the head without contrast. Total DLP: 855.91 mGy-cm Radiation optimization: All CT scans at this facility use at least one of these dose optimization techniques: automated exposure control; mA and/or kV adjustment per patient size (includes targeted exams where dose is matched to clinical indication); or iterative reconstruction. COMPARISON: CT head wo con* [id number] 01/23/2020 8:54 AM FINDINGS: Brain: No acute post-traumatic brain injury. Symmetric prominence of the cortical sulci. Multifocal small-vessel ischemic change again demonstrated. If an acute lacunar infarct is of clinical concern, MRI may be of benefit for further evaluation. No acute cortical infarct or intracranial hemorrhage. Ventricles: Normal configuration of the ventricles. Bones/joints: No acute calvarial injury. Stable benign appearing 13 mm ovoid lytic lesion in the frontal calvarium. Sinuses: 9 mm left frontal sinus osteoma. No sinus fluid. Mastoid air cells: No mastoid effusion. Soft tissues: Left frontal scalp hematoma. Multiple cutaneous calcifications. Vasculature: Vascular and dural calcification. CT/CT head wo con* [id number] IMPRESSION: 1. Left frontal scalp hematoma. 2. No acute post-traumatic brain injury. Radiation Dose CTDIVOL = (mGy): DLP = 855.91 (mGy-cm)
--- NOTE | 2020-03-08 10:00 | ED_ITS ---
HPI - Neuro Symptoms/Deficit General: Chief Complaint: Neuro Symptoms/Deficit Stated Complaint: LEFT SIDE WEAKNESS S/P MULT FALLS Time Seen by Provider: 03/08/20 09:52 History of Present Illness: HPI Narrative: Ms. Kruse arrives via ambulance with history of more falls over the last week. Did fall the wheelchair last week. Does complain about pain all over. See nurses note. Patient will only look to her right cannot look up to the left. Does not use left arm. Cannot lift arm but does have tactile discrimination left arm can move left leg but does not lift left leg. Requiring more help at the halfway with movement. Patient states that she was unable to move her left arm starting on morning Onset (ago): day(s) Location: left arm, left leg and other (Eyes gazing to the right but does have movement) Severity: moderate Associated symptoms: Deny chest pain, headache(s), nausea or vomiting Review of Systems Narrative: See HPI and nurse's note Const: Denies: fever, chills or body aches Eyes: Denies: change in vision or blurry vision ENMT: Denies: throat pain or nasal congestion Card: Denies: chest pain or shortness of breath on exertion Resp: Denies: shortness of breath, productive cough or non-productive cough GI: Denies: abdominal pain, nausea or vomiting Musc: Denies: extremity pain Skin/Breast: Denies: rash Neuro: Reports: weakness in extremities (Left side), frequent falls and other (Cannot look to the left but can look to the right and does have vision both eyes); Denies: headache Psych: Denies: anxiety or depression Marco/Lymph: Denies: easy bruising PFSH ED PFSH: Medical History (Updated 03/08/20 @ 11:28 by ANIA Ortiz) Anxiety Atrial fibrillation Cancer CKD (chronic kidney disease) stage 4, GFR 15-29 ml/min COPD (chronic obstructive pulmonary disease) Diabetes DVT (deep venous thrombosis) GERD (gastroesophageal reflux disease) HTN (hypertension) Hyperlipidemia Hyponatremia Type 2 MD (myocardial infarction) Surgical History History of bariatric surgery History of hysterectomy Social History Smoking and tobacco status: former smoker Quit status (tobacco): has quit using tobacco Year quit tobacco: 1999 approx Physical Exam Const: COMMON NORMALS: no apparent distress, average body habitus and oriented x3 HENMT: COMMON NORMALS: normocephalic HEAD & SCALP: normal to inspection and normocephalic FACE & SINUS: normal facial exam Eye: COMMON NORMALS: conjunctivae normal GENERAL EYE: normal appearance of both eyes CONJUNCTIVA: Yes conjunctivae normal Neck/C-Spine: COMMON NORMALS: no JVD Chest: COMMONS NORMALS: inspection of chest normal Resp: COMMON NORMALS: normal respiratory effort and clear to auscultation bilaterally AUSCULTATION: clear to auscultation bilaterally Cardio: COMMON NORMALS: no JVD, regular rate and regular rhythm RATE: regular rate RHYTHM: regular rhythm GI: COMMON NORMALS: normal to inspection, nondistended, normoactive bowel sounds Extremity: COMMON NORMALS: normal to inspection and full ROM Neuro: COMMON NORMALS: oriented x3 SPEECH: speech normal GAIT: Yes unable to assess gait SENSORY EXAM: Yes extremities MOTOR EXAM: strength abnormal (Left arm with no strength left leg was movement but cannot lift) Course Vital Signs: Vital signs: Vital Signs Temperature 98.0 F 03/08/20 09:56 Pulse Rate 65 03/08/20 11:22 Respiratory Rate 16 03/08/20 11:22 Blood Pressure 161/82 03/08/20 11:22 Pulse Oximetry 100 03/08/20 11:22 MDM - Neuro Symptoms/Deficit MDM Narrative: Medical decision making narrative: Discussed case with Dr. Gipson agrees with plan Lab Data: Labs: Lab Results 03/08/20 03/08/20 03/08/20 Range/Units 10:18 10:18 10:18 WBC 6.7 (4.0-10.0) 10^3/ uL RBC 3.59 L (4.1-5.3) 10^6/u L Hgb 10.9 L (11.5-15.3) g/dL Hct 35.2 L (37.0-47.0) % MCV 98.1 (81-99) fL MCH 30.4 (28.0-34.0) pg MCHC 31.0 (30.0-36.0) g/dL RDW 12.9 (12.1-15.1) % Plt Count 234 (130-400) 10^3/c mm MPV 9.3 (7.4-10.4) fL Neut % (Auto) 73.5 % Lymph % (Auto) 15.1 % [place] % (Auto) 7.0 % Eos % (Auto) 4.0 % Baso % (Auto) 0.1 % Neut # (Auto) 5.0 (1.8-7.7) 10^3/u L Lymph # (Auto) 1.0 (0.8-4.8) 10^3/u L [place] # (Auto) 0.5 (0.2-0.9) 10^3/u L Eos # (Auto) 0.3 (0.0-0.8) 10^3/u L Baso # (Auto) 0.0 (0.0-0.1) 10^3/u L Nucleated RBC % (a uto) 0 % Nucleated RBCs # 0.0 /100WBC PT 12.90 (10.5-13.3) SECO NDS INR 0.94 (0.8-1.2) Sodium 132 L (136-145) mmol/L Potassium 4.5 (3.5-5.1) mmol/L Chloride 95 L (98-107) mmol/L Carbon Dioxide 24 (22-29) mmol/L Anion Gap 17.5 (5-19) BUN 40 H (8-23) mg/dL Creatinine 2.5 H (0.5-0.9) mg/dL Glucose 220 H (65-115) mg/dL Calculated Osmolal ity 278 L (285-295) mOsm/k g Calcium 9.2 (8.5-10.5) mg/dL Total Bilirubin 0.3 (0.15-1.2) mg/dL AST 26 (0-32) U/L ALT 17 (0-33) U/L Alkaline Phosphata se 297 H (35-105) IU/L Total Protein 6.8 (6.6-8.7) g/dL Albumin 3.9 (3.5-5.2) g/dL Globulin 2.9 (1.3-4.6) g/dL Urine Color (Yellow) Urine Appearance (CLEAR) Urine pH (5-7) Ur Specific Gravit y (1.005-1.030) Urine Protein (Negative) Urine Glucose (UA) (Normal) Urine Ketones (Negative) Urine Blood (Negative) Urine Nitrate (Negative) Urine Bilirubin (NEGATIVE) Urine Urobilinogen (Negative) mg/dL Ur Leukocyte Nancy ase (Negative) Urine RBC (0-2) /hpf Urine WBC (0-5) /hpf Ur Squamous Epith Cells (0-5) Amorphous Sediment Urine Bacteria (NONE) Urine Mucus 03/08/20 Range/Units 10:23 WBC (4.0-10.0) 10^3/ uL RBC (4.1-5.3) 10^6/u L Hgb (11.5-15.3) g/dL Hct (37.0-47.0) % MCV (81-99) fL MCH (28.0-34.0) pg MCHC (30.0-36.0) g/dL RDW (12.1-15.1) % Plt Count (130-400) 10^3/c mm MPV (7.4-10.4) fL Neut % (Auto) % Lymph % (Auto) % [place] % (Auto) % Eos % (Auto) % Baso % (Auto) % Neut # (Auto) (1.8-7.7) 10^3/u L Lymph # (Auto) (0.8-4.8) 10^3/u L [place] # (Auto) (0.2-0.9) 10^3/u L Eos # (Auto) (0.0-0.8) 10^3/u L Baso # (Auto) (0.0-0.1) 10^3/u L Nucleated RBC % (a uto) % Nucleated RBCs # /100WBC PT (10.5-13.3) SECO NDS INR (0.8-1.2) Sodium (136-145) mmol/L Potassium (3.5-5.1) mmol/L Chloride (98-107) mmol/L Carbon Dioxide (22-29) mmol/L Anion Gap (5-19) BUN (8-23) mg/dL Creatinine (0.5-0.9) mg/dL Glucose (65-115) mg/dL Calculated Osmolal ity (285-295) mOsm/k g Calcium (8.5-10.5) mg/dL Total Bilirubin (0.15-1.2) mg/dL AST (0-32) U/L ALT (0-33) U/L Alkaline Phosphata se (35-105) IU/L Total Protein (6.6-8.7) g/dL Albumin (3.5-5.2) g/dL Globulin (1.3-4.6) g/dL Urine Color Yellow (Yellow) Urine Appearance Sl hazy (CLEAR) Urine pH 5 (5-7) Ur Specific Gravit y 1.015 (1.005-1.030) Urine Protein 3+ H (Negative) Urine Glucose (UA) 1+ (Normal) Urine Ketones Negative (Negative) Urine Blood Neg (Negative) Urine Nitrate Negative (Negative) Urine Bilirubin Neg (NEGATIVE) Urine Urobilinogen Norm (Negative) mg/dL Ur Leukocyte Nancy ase 2+ H (Negative) Urine RBC None (0-2) /hpf Urine WBC 25-40 H (0-5) /hpf Ur Squamous Epith Cells 0-4 H (0-5) Amorphous Sediment 1+ Urine Bacteria 1+ H (NONE) Urine Mucus 1+ Discharge Plan Discharge Clinical Impression: CKD (chronic kidney disease) stage 4, GFR 15-29 ml/min, Bacterial UTI Cerebrovascular accident Qualifiers: CVA mechanism: unspecified Qualified Code(s): I63.9 - Cerebral infarction, unspecified Condition: Stable Prescriptions: New cephalexin [Keflex] 500 mg capsule 500 mg PO TID 7 Days Qty: 21 RF: 0 No Action ondansetron 4 mg tablet,disintegrating 4 mg PO TID PRN (Reason: NAUSEA/VOMITING) RF: 0 morphine concentrate 100 mg/5 mL (20 mg/mL) solution See Rx Instructions .ROUTE .COMPLEX RF: 0 tramadol 50 mg Tablet 50 mg PO Q6H PRN (Reason: Pain) RF: 0 Refresh Celluvisc 1 % Dropperette,Gel 1 drp OPHTHALMIC (EYE) BID RF: 0 Voltaren 1 % Gel See Rx Instructions .ROUTE .COMPLEX PRN (Reason: Pain) RF: 0 acetaminophen 325 mg tablet 325 mg PO Q8H PRN (Reason: Pain) RF: 0 amlodipine 10 mg tablet 10 mg PO DAILY RF: 0 cyclobenzaprine 10 mg tablet 10 mg PO Q8H PRN (Reason: headache) RF: 0 duloxetine 60 mg capsule,delayed release(DR/EC) 60 mg PO DAILY RF: 0 donepezil 5 mg tablet 5 mg PO BEDTIME RF: 0 bisacodyl [Dulcolax (bisacodyl)] 10 mg Suppository 10 mg TN PRN PRN (Reason: Constipation) RF: 0 levothyroxine 75 mcg tablet 75 mcg PO DAILY RF: 0 Ocuvite with Lutein 150 mg PO DAILY RF: 0 sennosides-docusate sodium [Senna-S] 8.6-50 mg tablet 1 tab PO BID RF: 0 trazodone 50 mg tablet 50 mg PO DAILY RF: 0 pantoprazole 40 mg tablet,delayed release (DR/EC) 40 mg PO BID RF: 0 sodium bicarbonate 650 mg tablet 650 mg PO DAILY RF: 0 ferrous sulfate 325 mg (65 mg iron) Tablet 325 mg PO DAILY RF: 0 alprazolam 0.25 mg tablet 0.25 mg PO BEDTIME RF: 0 clonidine HCl 0.1 mg Tablet 0.1 mg PO TID PRN (Reason: HTN) RF: 0 furosemide 20 mg tablet 20 mg PO DAILY Qty: 7 RF: 0 potassium chloride 10 mEq capsule, extended release 10 meq PO DAILY Qty: 10 RF: 0 Referrals: Nasreen Monatna MD [Family Provider] - Edwardo Poole MD [Primary Care Provider] - Discharge Diet: Advance as tolerated Discharge Activity: Increase activity as tolerated Patient Instructions: Urinary Tract Infection in Women (ED), Ischemic Stroke (GEN) Activity Restrictions/Additional Instructions: Follow-up with medical provider as directed. Take medications as prescribed. Return to the ER or your medical provider if condition worsens. Please read and understand discharge instructions. If any questions ask please. Notify primary care provider that patient probably had a stroke on . Give medicine for urinary tract infection. Patient is to be on fall precautions. We will need to follow-up cath urine to check for Resolution of infection. Coding Level of Care Code ED Adjunct Spanish Instructor for [employer] Exam Comprehensive
[2020-03-08 10:24] LABS: Basophils % 0.1 %; Eosinophils # 0.3 10^3/uL (0.0-0.8); Hematocrit 35.2 % (37.0-47.0); Hemoglobin 10.9 g/dL (11.5-15.3); Lymphocytes % 15.1 %; Mean Corpuscular Hemoglobin 30.4 pg (28.0-34.0); Mean Corpuscular Volume 98.1 fL (81-99); Mean Platelet Volume 9.3 fL (7.4-10.4); Monocytes # 0.5 10^3/uL (0.2-0.9); Neutrophils % 73.5 %; Nucleated Red Blood Cells % 0 %; Platelet Count 234 10^3/cmm (130-400); Red Blood Count 3.59 10^6/uL (4.1-5.3); Red Cell Distribution Width 12.9 % (12.1-15.1); White Blood Count 6.7 10^3/uL (4.0-10.0)
--- NOTE | 2020-03-08 10:27 | PC.NURSE ---
Pt to CT
[2020-03-08 10:34] LABS: INR 0.94 (0.8-1.2)
--- NOTE | 2020-03-08 10:36 | PC.NURSE ---
Pt returned from CT
[2020-03-08 10:39] LABS: Alanine Aminotransferase 17 U/L (0-33); Albumin Level 3.9 g/dL (3.5-5.2); Alkaline Phosphatase 297 IU/L (35-105); Anion Gap 17.5 (5-19); Aspartate Amino Transferase 26 U/L (0-32); Blood Urea Nitrogen 40 mg/dL (8-23); Calcium 9.2 mg/dL (8.5-10.5); Carbon Dioxide 24 mmol/L (22-29); Chloride 95 mmol/L (98-107); Globulin 2.9 g/dL (1.3-4.6); Glucose 220 mg/dL (65-115); Osmolality Calculated 278 mOsm/kg (285-295); Potassium 4.5 mmol/L (3.5-5.1); Sodium 132 mmol/L (136-145); Total Bilirubin 0.3 mg/dL (0.15-1.2); Total Protein 6.8 g/dL (6.6-8.7)
[2020-03-08 10:56] LABS: Bilirubin Urine Neg (NEGATIVE); Blood Urine Neg (Negative); Ketones Urine Negative (Negative); Nitrate Urine Negative (Negative); Protein Urine 3+ (Negative); Specific Gravity, Urine 1.015 (1.005-1.030); Urine Appearance SL Hazy (CLEAR); Urine Color Yellow (Yellow); Urobilinogen Urine Norm (Negative); pH Urine 5 (5-7)
[2020-03-08 10:57] LABS: Add Urine Microscopic? YES; Glucose Urine UA 1+ (Normal); Leukocyte Esterase Urine 2+ (Negative)
[2020-03-08 10:59] LABS: Add Urine Culture? Yes; Amorphous Sediment Urine 1+; Bacteria Urine 1+; Mucus Urine 1+; Squamous Epithelial Cell Urine 0-4 (0-5); WBC Urine 25-40 /hpf (0-5)
[2020-03-08] MEDS: cephALEXin 500 mg Capsule PO (11:09)
--- NOTE | 2020-03-08 11:19 | XRR_ITS ---
PROCEDURE INFORMATION: Exam: XR Left Humerus Exam date and time: 03/08/2020 11:47 AM Age: 74 years old Clinical indication: Injury or trauma; Initial encounter; Blunt trauma (contusions or hematomas; Arm, upper; Left; Prior surgery; Surgery date: 6+ months; Surgery type: L elbow; Patient HX: Fall 2 days ago cannot move L arm; Additional info: Wont move arm/fall TECHNIQUE: Imaging protocol: XR Left humerus Views: 2 or more views. COMPARISON: No relevant prior studies available. FINDINGS: Bones/joints: Osteopenia. Cysts in the proximal left humerus. Postoperative change in the distal left humerus. No gross evidence for acute bony injury in the visualized left humerus. Soft tissues: Unremarkable as visualized. XR/[place] [id number] IMPRESSION: No gross evidence for acute bony injury in the visualized left humerus.
--- NOTE | 2020-03-08 11:20 | XRR_ITS ---
PROCEDURE INFORMATION: Exam: XR Chest, 1 View Exam date and time: 03/08/2020 11:47 AM Age: 74 years old Clinical indication: Injury or trauma; Initial encounter; Blunt trauma (contusions or hematomas); Prior surgery; Surgery date: 6+ months; Surgery type: R shoulder; Patient HX: Fall 2 days ago TECHNIQUE: Imaging protocol: XR of the chest Views: 1 view. COMPARISON: CR XR chest 1V portable [id number] 12/19/2019 10:52 PM FINDINGS: Lungs: Interstitial prominence and chronic granulomatous disease. Pleural space: No significant pleural effusion. Heart/Mediastinum: Cardiomegaly. Vasculature: Ectasia of the thoracic aorta. Bones/joints: Right shoulder arthroplasty. Other findings: Partial obscuration of the apices by the patient's mandible. When correlating with the previous study, no significant interval changes are present. XR/XR chest 1V portable [id number] IMPRESSION: Stable appearance of the chest, not significantly changed from 12/19/19.
--- NOTE | 2020-03-08 12:49 | PC.NURSE ---
Pt provided with lunch tray
[2020-03-08] MEDS: HYDROcodone-acetaminophen 5-325 mg Tablet 1 TAB PO (13:00)
--- NOTE | 2020-03-08 13:28 | ECG_ITS ---
Measurements Intervals [place] Rate: 58 P: -11 NE: 155 QRS: -34 QRSD: 107 T: 85 QT: 437 QTc: 430 SINUS BRADYCARDIA WITH SINUS ARRHYTHMIA LEFT AXIS DEVIATION [QRS AXIS < -30] LEFT VENTRICULAR HYPERTROPHY AND ST-T CHANGE [VOLTAGE CRITERIA PLUS ST/T AB ABNORMALITY] Compared to ECG 12/20/2019 00:36:35 Sinus rhythm no longer present Ventricular premature complex(es) no longer present ST (T wave) deviation still present Electronically Signed On 03-08-2020 14:04:07 CDT by Janine Ruiz M.D. [email or web address]
--- NOTE | 2020-03-08 14:05 | PC.NURSE ---
Pt called nursing staff to notify of incontinence. Pt brief and gown changed, marcelo care provided. Pt provided with warm blankets, call light in reach, no other needs at this time.
== END 2020-03-08 15:08 ==
PROVIDERS: Emergency Provider Nurse Practitioner Family; Family Provider Family Medicine; PCP Family Medicine
DX: I63.9 Cerebral infarction, unspecified (principal); N39.0 Urinary tract infection, site not specified; B96.89 Other specified bacterial agents as the cause of diseases classified elsewhere; J44.9 Chronic obstructive pulmonary disease, unspecified; E11.22 Type 2 diabetes mellitus with diabetic chronic kidney disease; I12.9 Hypertensive chronic kidney disease with stage 1 through stage 4 chronic kidney disease, or unspecified chronic kidney disease; N18.4 Chronic kidney disease, stage 4 (severe); Z86.718 Personal history of other venous thrombosis and embolism; K21.9 Gastro-esophageal reflux disease without esophagitis; E78.5 Hyperlipidemia, unspecified; I25.2 Old myocardial infarction; Z87.891 Personal history of nicotine dependence
CPT/HCPCS: 12345; 36415; 70450; 71045; 73060; 80053; 81001; 85025; 85610; 87077; 87086; 87186; 93005; 99283; A9270

== ENCOUNTER 2020-03-12 11:34 | Inpatient (IN) | payer MEDICARE, MEDICAID, SELFPAY ==
[2020-03-12] VITALS (15 sets, daily range): BP systolic 144–206; BP diastolic 72–115; PULSE 63–91; RESP 15–22; TEMP 36.8–37.1; O2SAT 96–100; BMI 23.9
--- NOTE | 2020-03-12 11:58 | W.ED.SEIZURE ---
HPI - Seizure General: Chief Complaint: Seizure Stated Complaint: SEIZURE LIKE ACTIVITY Time Seen by Provider: 03/12/20 11:36 History of Present Illness: HPI Narrative: 74 yo female [facility] in by EMS from a [facility]. 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 She is insistent she did not have a seizure. She states she just had some shakes. She denies having any chest pain or shortness of breath she has some bruising on the left side of her face related to her previous event. She is not sure if she is on any anticoagulants. Associated symptoms: Deny chest pain, chills, fever(s) or malaise Review of Systems Const: Denies: fever, chills, body aches, change in appetite, fatigue or malaise ENMT: Denies: throat pain, ear pain, nasal discharge or nasal congestion Card: Denies: chest pain, edema, shortness of breath on exertion or shortness of breath when lying down Resp: Denies: shortness of breath, productive cough or non-productive cough GI: Denies: abdominal pain, nausea, vomiting, vomiting blood, coffee grounds in vomit, diarrhea, constipation, bloating, blood in stool or black tarry stool : Denies: flank pain, difficulty urinating, painful urination, urinary frequency or urinary urgency Skin/Breast: Denies: rash or itching [facility], [facility] PFSH: Medical History (Updated 03/12/20 @ 15:58 by Halle Stanley MD) Anxiety Atrial fibrillation Cancer Chronic pain has morphine pain pump CKD (chronic kidney disease) stage 4, GFR 15-29 ml/min COPD (chronic obstructive pulmonary disease) Dementia Diabetes non-insulin dependent DVT (deep venous thrombosis) LLE, previously on Eliquis GERD (gastroesophageal reflux disease) HTN (hypertension) Hyperlipidemia Hyponatremia Hypothyroidism Peripheral vascular disease Recurrent UTI Type 2 NV (myocardial infarction) Surgical History H/O left knee surgery History of bariatric surgery History of hysterectomy Hx of bilateral salpingo-oophorectomy Hx of cholecystectomy S/P shoulder surgery right Family History (Updated 03/12/20 @ 15:24 by Halle Stanley MD) Other CAD (coronary artery disease) Social History (Updated 03/12/20 @ 15:25 by Halle Stanley MD) Smoking and tobacco status: former smoker Quit status (tobacco): has quit using tobacco Year quit tobacco: 1999 approx Alcohol intake: never Substance/Drug Use: never Housing: [facility] Current occupational status: retired Physical Exam Const: COMMON NORMALS: no apparent distress GENERAL APPEARANCE: cooperative and comfortable HENMT: COMMON NORMALS: normocephalic, head/scalp atraumatic, hearing grossly normal bilaterally, external ears normal, EAC's normal, TM's normal bilaterally, nasal mucous membranes and turbinates normal, moist oral mucous membranes and oropharynx normal HEAD & SCALP: normocephalic and atraumatic NOSE: nasal mucous membranes and turbinates normal EXTERNAL EAR: Yes external ears normal EXTERNAL AUDITORY CANAL: EAC's normal TYMPANIC MEMBRANE: TM's normal bilaterally Neck/C-Spine: COMMON NORMALS: full ROM, no lymphadenopathy, supple and no JVD Lymph: LYMPHATIC: no lymphadenopathy noted and no lymphedema noted Resp: COMMON NORMALS: normal respiratory effort, no retractions, no use of accessory muscles and clear to auscultation bilaterally AUSCULTATION: clear to auscultation bilaterally Cardio: COMMON NORMALS: no JVD, regular rate, regular rhythm and no murmurs RATE: regular rate RHYTHM: regular rhythm GI: COMMON NORMALS: soft to palpation and no hepatosplenomegaly AUSCULTATION: Yes normoactive bowel sounds PALPATION: Yes soft, No tender, No guarding and Yes no hepatosplenomegaly Extremity: COMMON NORMALS: normal to inspection, normal capillary refill, no clubbing, cyanosis or edema, no calf tenderness and no pedal edema Course Vital Signs: Vital signs: Vital Signs Temperature 98.6 F 03/12/20 15:14 Pulse Rate 78 03/12/20 15:14 Respiratory Rate 18 03/12/20 15:14 Blood Pressure 163/85 03/12/20 15:14 Pulse Oximetry 98 03/12/20 15:14 MDM - Seizure MDM Narrative: Medical decision making narrative: She had a witnessed seizure while she was here she had a recent CVA she does have bruising on the left side of her face from the fall she is no longer on Coumadin. She was loaded with Keppra and given Ativan here in the emergency room will go ahead and admit her monitor overnight start her on oral anti-seizure medications were discharging home discussed with Dr. Stanley Lab Data: Attestation: I reviewed the patient's lab results. Labs: Lab Results 03/12/20 03/12/20 Range/Units 12:27 12:27 Sodium 132 L (136-145) mmol/L Potassium 4.8 (3.5-5.1) mmol/L Chloride 93 L (98-107) mmol/L Carbon Dioxide 24 (22-29) mmol/L Anion Gap 19.8 H (5-19) BUN 34 H (8-23) mg/dL Creatinine 2.4 H (0.5-0.9) mg/dL Glucose 146 H (65-115) mg/dL Calculated Osmolal ity 274 L (285-295) mOsm/k g Calcium 9.5 (8.5-10.5) mg/dL Total Bilirubin 0.2 (0.15-1.2) mg/dL AST 27 (0-32) U/L ALT 12 (0-33) U/L Alkaline Phosphata se 347 H (35-105) IU/L Creatine Kinase 127 (26-192) U/L Total Protein 7.4 (6.6-8.7) g/dL Albumin 4.4 (3.5-5.2) g/dL Globulin 3.0 (1.3-4.6) g/dL Urine Color Yellow (Yellow) Urine Appearance Clear (CLEAR) Urine pH 6.5 (5-7) Ur Specific Gravit y 1.005 (1.005-1.030) Urine Protein 3+ H (Negative) Urine Glucose (UA) 1+ (Normal) Urine Ketones Negative (Negative) Urine Blood Neg (Negative) Urine Nitrate Negative (Negative) Urine Bilirubin Neg (NEGATIVE) Urine Urobilinogen Norm (Negative) mg/dL Ur Leukocyte Nancy ase 2+ H (Negative) Urine RBC None (0-2) /hpf Urine WBC 25-40 H (0-5) /hpf Ur Squamous Epith Cells 0-4 H (0-5) Urine Bacteria Trace (NONE) Discharge Plan Discharge Patient Disposition: Admitted As Inpatient Admit Provider: Halle Stanley Discharge Date/Time: 03/12/20 15:06 Coding Level of Care Code ED Cream Hauler for g Fwd Exam Comprehensive
--- NOTE | 2020-03-12 12:03 | XR_ITS ---
WS: [id number] CHEST XRAY TECHNIQUE: Portable chest. CLINICAL INFORMATION: dyspnea/cough COMPARISON: March 08, 2020 FINDINGS: Heart: Normal cardiac silhouette. Lungs: Moderate chronic emphysematous changes. Chronic appearing interstitial thickening is unchanged . Pleural thickening right lung is similar in appearance. Bones: Chronic right rib fractures with callus formation. Cholecystectomy clips. Right TSA. XR/XR chest 1V portable [id number] IMPRESSION: No acute findings and no changes since March 08, 2020
--- NOTE | 2020-03-12 12:03 | CT_ITS ---
WS: [id number] CT HEAD TECHNIQUE: Noncontrast CT of the head obtained from the skullbase to the vertex. CLINICAL INFORMATION: CVA/seizure COMPARISON: March 08, 2020 DLP: 1630.[address] scans at [facility] use at least one of these dose optimization techniques: automat ed exposure control; mA and/or kV adjustment per patient size (includes targeted exams where dose is matched to clinical indication); or iterative reconstruction. FINDINGS: No evidence of intracranial hemorrhage or mass effect. Ventricular system and basal cisterns are li nt. Moderate small vessel changes with moderate parenchymal volume loss. No extra-axial fluid collect ions. No evidence of mass or mass effect. Normal maurer-white differentiation. Paranasal sinuses and mastoid air cells are well aerated. Incidental calcified osteomas in the fronta l sinus. Soft tissue edema left frontal scalp. No acute fractures. CT/CT head wo con* [id number] IMPRESSION: 1. No evidence of intracranial hemorrhage or mass effect. 2. [id number] small vessel changes with moderate parenchymal volume loss . 3. Soft tissue edema left frontal scalp. No acute fractures.
--- NOTE | 2020-03-12 12:03 | ECG_ITS ---
Measurements Intervals [place] Rate: 71 P: -13 TN: 147 QRS: -31 QRSD: 102 T: 67 QT: 387 QTc: 423 SINUS RHYTHM WITH SINUS ARRHYTHMIA LEFT AXIS DEVIATION [QRS AXIS < -30] LEFT VENTRICULAR HYPERTROPHY AND ST-T CHANGE [VOLTAGE CRITERIA PLUS ST/T AB ABNORMALITY] Compared to ECG 03/08/2020 09:57:31 Sinus bradycardia no longer present ST (T wave) deviation still present Electronically Signed On 03-13-2020 6:43:13 CDT by Sunil Garg M.D. [id number]
--- NOTE | 2020-03-12 12:32 | PC.NURSE ---
CXR performed at bedside, pt taken to CT after
[2020-03-12 13:11] LABS: Add Urine Microscopic? YES; Bilirubin Urine Neg (NEGATIVE); Blood Urine Neg (Negative); Glucose Urine UA 1+ (Normal); Ketones Urine Negative (Negative); Leukocyte Esterase Urine 2+ (Negative); Nitrate Urine Negative (Negative); Protein Urine 3+ (Negative); Specific Gravity, Urine 1.005 (1.005-1.030); Urine Appearance Clear (CLEAR); Urine Color Yellow (Yellow); Urobilinogen Urine Norm (Negative); pH Urine 6.5 (5-7)
[2020-03-12 13:12] LABS: Add Urine Culture? Yes; Bacteria Urine TRACE; Squamous Epithelial Cell Urine 0-4 (0-5); WBC Urine 25-40 /hpf (0-5)
[2020-03-12 13:13] LABS: Alanine Aminotransferase 12 U/L (0-33); Albumin Level 4.4 g/dL (3.5-5.2); Alkaline Phosphatase 347 IU/L (35-105); Anion Gap 19.8 (5-19); Aspartate Amino Transferase 27 U/L (0-32); Blood Urea Nitrogen 34 mg/dL (8-23); Calcium 9.5 mg/dL (8.5-10.5); Carbon Dioxide 24 mmol/L (22-29); Chloride 93 mmol/L (98-107); Creatine Phosphokinase 127 U/L (26-192); Glucose 146 mg/dL (65-115); Osmolality Calculated 274 mOsm/kg (285-295); Potassium 4.8 mmol/L (3.5-5.1); Sodium 132 mmol/L (136-145); Total Bilirubin 0.2 mg/dL (0.15-1.2); Total Protein 7.4 g/dL (6.6-8.7)
--- NOTE | 2020-03-12 13:21 | PC.NURSE ---
Blood drawn at bedside by nursing staff, pt was alert and oriented during this and tolerated well, upon completion of blood draw, pt had a seizure lasting approx 20-30 seconds. Pt had approx 1-2 minutes of lethargy and confusion post-event then became alert and oriented again with reported headache of 10/10. Dr Gipson was notified of seizure during activity. Pt placed on 2LNC.
[2020-03-12] MEDS: LORazepam 2 mg/mL INJ 1 mL 1 MG IVP (13:24)
--- NOTE | 2020-03-12 14:10 | PC.NURSE ---
Dr Neri at bedside
[2020-03-12 14:16] LABS: Basophils % 0.3 %; Eosinophils # 0.1 10^3/uL (0.0-0.8); Eosinophils % 1.4 %; Hematocrit 35.3 % (37.0-47.0); Hemoglobin 11.1 g/dL (11.5-15.3); Lymphocytes # 0.9 10^3/uL (0.8-4.8); Lymphocytes % 12.6 %; Mean Corpuscular HGB Conc 31.4 g/dL (30.0-36.0); Mean Corpuscular Hemoglobin 31.1 pg (28.0-34.0); Mean Corpuscular Volume 98.9 fL (81-99); Mean Platelet Volume 9.4 fL (7.4-10.4); Monocytes # 0.5 10^3/uL (0.2-0.9); Monocytes % 7.1 %; Neutrophils # 5.7 10^3/uL (1.8-7.7); Neutrophils % 78.3 %; Nucleated Red Blood Cells % 0 %; Platelet Count 241 10^3/cmm (130-400); Red Blood Count 3.57 10^6/uL (4.1-5.3); Red Cell Distribution Width 12.9 % (12.1-15.1); White Blood Count 7.3 10^3/uL (4.0-10.0)
[2020-03-12] MEDS: cefTRIAXone 1,000 MG in sodium chloride 0.9% (plus) 50 ML 100 MG IV (14:37)
--- NOTE | 2020-03-12 14:40 | PM.HP ---
Providers/Chief Complaint Admitting Physician: Halle Stanley MD Primary Care Provider: Edwardo Poole MD Chief Complaint: SEIZURE History of Present Illness Lindsey Mcnair is a 74 year old female with extensive PMHx including HTN, Hyperlipidemia, Hypothyroidism, NIDDM type II, Paroxysmal atrial fibrillation, Recurrent UTIs; presents from ICU for evaluation of noted seizure-like activity earlier today at custodial. On her arrival she had another last seizure-like episode that lasted between 30 to 60 seconds and stopped after dose of Ativan was given. She appears to be postictal. Patient has no known prior history of seizures and is not on any antiepileptic medications. She is arousable during my evaluation in the ER though unable to provide much in the way of history and is not making a lot of sense currently. Patient is known to me from previous admission in 2018 and her baseline mental status is alert and oriented x3. Review of medical record shows that she was seen in the ER on 03/08 for noted left-sided weakness and falls. Work-up at that time showed possible UTI and she was discharged back to [facility] with a prescription for cephalexin. Additional history is obtained from conversation with patient's care nurse Halle who states that patient seems to be gradually declining particularly over the past 2 weeks. Sometime in January due to increased pain she had been started on Tegretol 100 mg for 1 week then dose increased to 200 mg. Patient seemed to tolerate the 100 mg dose well with decreased pain and ability to participate in activities a little bit more, improved appetite. However 1 dose was increased to 200 mg she seems to not be quite as alert or active and was noted to have increased difficulty with ambulation, bradycardia. At this point Tegretol was discontinued and her metoprolol dose was decreased. She has been off Eliquis secondary to GI bleed. She has a morphine pump in place for pain control. She typically ambulates independently for short distances then uses an electric wheelchair for further distances. Over the past several days her blood pressure has been increasingly high and she has required at least 3 doses of 5 as needed clonidine dose for more optimal blood pressure control. She has been known to have instances of confusion and requiring more assistance with activity. Yesterday seem to be a better day for her with noted improved ability to concentrate, improved appetite, mental status seems to be closer to baseline. Paperwork is provided from custodial including CODE STATUS, medication regimen and vital signs. Per EMS run sheet patient's blood pressure on the arrival is 198/171 with noted normal sinus rhythm at 73 and a blood sugar of 240. And is currently being loaded with Keppra in the ER. She is very restless and keeps fidgeting during my encounter with her, keeps patting her right thigh and has repeated twitching movements of her right hand and foot. She has noted bruising on the left side of her face and is unable to electric motor control assembler my fingers on the left. She does not seem to track my movements in the room and seems to show a right gaze preference. Head is negative for any acute findings, she has noted mild hyponatremia with a sodium of 132, BUN of 34, creatinine of 2.4, UA continues to show evidence of infection, chest x-ray is negative, CBC is unremarkable other than mild anemia with a hemoglobin of 11.1. Patient is made admitted for further monitoring and continuation of antiepileptic medications. Review of Systems General: Reports: ROS unobtainable due to mental status Medications/Allergies Home Medications Medication Instructions Recorded Confirmed Last Taken Type Ocuvite with Lutein 1 tab PO DAILY 12/19/19 03/12/20 03/12/20 09:15 History acetaminophen 650 mg PO Q8H PRN 12/19/19 03/12/20 03/12/20 09:24 History alprazolam 0.25 mg PO BEDTIME 12/19/19 03/12/20 03/11/20 19:06 History amlodipine 10 mg PO DAILY 12/19/19 03/12/20 03/12/20 09:16 History bisacodyl [Dulcolax (bisacodyl)] 10 mg RI PRN PRN 12/19/19 03/12/20 Unknown History clonidine HCl 0.1 mg PO TID PRN 12/19/19 03/12/20 03/12/20 10:21 History cyclobenzaprine 10 mg PO Q8H PRN 12/19/19 03/12/20 02/27/20 14:15 History donepezil 5 mg PO BEDTIME 12/19/19 03/12/20 03/11/20 19:06 History duloxetine 60 mg PO DAILY 12/19/19 03/12/20 03/12/20 09:15 History ferrous sulfate 325 mg PO DAILY 0103/12/20 03/11/20 18:44 History levothyroxine 75 mcg PO DAILY 12/19/19 03/12/20 03/12/20 06:00 History pantoprazole 40 mg PO BID 12/19/19 03/12/20 03/12/20 09:16 History sennosides-docusate sodium 1 tab PO BID 12/19/19 03/12/20 03/12/20 09:16 History [Senna-S] sodium bicarbonate 650 mg PO DAILY 12/19/19 03/12/20 03/12/20 09:15 History trazodone 50 mg PO BEDTIME 12/19/19 03/12/20 03/11/20 19:06 History furosemide 20 mg PO DAILY #7 tab 12/20/19 03/12/20 03/12/20 09:14 Rx potassium chloride 10 meq PO DAILY #10 cap 12/20/19 03/12/20 03/12/20 09:16 Rx ondansetron 4 mg disintegrating 4 mg PO TID PRN 01/14/20 03/12/20 03/07/20 History tablet carboxymethylcellulose sodium 1 drp OPHTHALMIC (EYE) BID PRN 03/08/20 03/12/20 Unknown History [Refresh Celluvisc] diclofenac sodium [Voltaren] See Rx Instructions .ROUTE 03/08/20 03/12/20 Unknown History .COMPLEX PRN tramadol 50 mg PO Q6H PRN 03/08/20 03/12/20 Unknown History Lactobacillus rhamnosus GG 1 cap PO DAILY 03/12/20 03/12/20 03/12/20 09:16 History [Culturelle] Morphine Sulfate See Rx Instructions .ROUTE .COMPLEX 03/12/20 03/12/20 Unknown History cephalexin [Keflex] 500 mg PO TID 03/12/20 03/12/20 03/12/20 09:16 History Allergies Allergy/AdvReac Type Severity Reaction Status Date / Time codeine Allergy Unknown Verified 01/14/20 11:42 pregabalin [From Lyrica CR] Allergy Unknown Verified 01/14/20 11:42 PFSH Acute PFSH: Medical History (Updated 03/12/20 @ 15:58 by Halle Stanley MD) Anxiety Atrial fibrillation Cancer Chronic pain has morphine pain pump CKD (chronic kidney disease) stage 4, GFR 15-29 ml/min COPD (chronic obstructive pulmonary disease) Dementia Diabetes non-insulin dependent DVT (deep venous thrombosis) LLE, previously on Eliquis GERD (gastroesophageal reflux disease) HTN (hypertension) Hyperlipidemia Hyponatremia Hypothyroidism Peripheral vascular disease Recurrent UTI Type 2 NH (myocardial infarction) Surgical History H/O left knee surgery History of bariatric surgery History of hysterectomy Hx of bilateral salpingo-oophorectomy Hx of cholecystectomy S/P shoulder surgery right Family History (Updated 03/12/20 @ 15:24 by Halle Stanley MD) Other CAD (coronary artery disease) Social History (Updated 03/12/20 @ 15:25 by Halle Stanley MD) Smoking and tobacco status: former smoker Quit status (tobacco): has quit using tobacco Year quit tobacco: 1999 approx Alcohol intake: never Substance/Drug Use: never Housing: Care Home Current occupational status: retired Vitals/I&O/Wt Last Vital Signs Temp 98.5 F 03/12/20 11:42 Pulse 77 03/12/20 14:37 Resp 16 03/12/20 14:37 BP 146/86 03/12/20 14:37 Pulse Ox 100 03/12/20 14:37 03/11/20 03/12/20 03/12/20 22:59 06:59 14:59 Intake Total 110 / 110 Balance 110 / 110 Weight last 48 hrs Weight 65.317 kg Physical Exam Const: OTHER: -very restless, arousable but not making much sense HENMT: COMMON NORMALS: normocephalic, head/scalp atraumatic, hearing grossly normal bilaterally and moist oral mucous membranes HEAD & SCALP: normocephalic and atraumatic OTHER: -head turned primarily to the R Eye: COMMON NORMALS: PERRL, EOMs intact bilaterally and conjunctivae normal CONJUNCTIVA: Yes conjunctivae normal PUPIL: Yes PERRL Neck/C-Spine: GENERAL: Yes normal visual inspection and Yes trachea midline Chest: COMMONS NORMALS: inspection of chest normal Resp: COMMON NORMALS: normal respiratory effort, no retractions and no use of accessory muscles EFFORT & INSPECTION: Yes able to speak in complete sentences, Yes symmetric chest movement and No tachypneic AUSCULTATION: diminished lung sounds OTHER: -on 2 L NC Cardio: COMMON NORMALS: regular rate, regular rhythm, S1 normal heart sound, S2 normal heart sound and no murmurs RATE: regular rate RHYTHM: regular rhythm HEART SOUNDS: S1 normal and S2 normal GI: COMMON NORMALS: normal to inspection, nondistended, normoactive bowel sounds, soft to palpation and non-tender PALPATION: Yes soft OTHER: -pain pump palpable in LLQ Extremity: COMMON NORMALS: normal to inspection, full ROM, no clubbing, cyanosis or edema and no pedal edema Neuro: SENSORIUM/ORIENTATION: Yes lethargic OTHER: -able to electric motor control assembler on the R, appears to be flaccid on the L -R gaze preference -speech difficult to understand -Twitching movements of right hand and left foot Skin: COMMON NORMALS: no rashes or lesions noted, no jaundice, no petechiae and no mottling GENERAL SKIN EXAM: no rashes or lesions noted OTHER: -noted bruising of L side of face Data : 03/12/20 14:02 03/12/20 12:27 A&P Assessment and plan (1) Seizure-like activity: -Witnessed seizure-like activity in the ER, stopped after dose of Ativan given, appears to be postictal -No documented history of prior seizure-like activity, has not been on any AEDs -Loaded with Keppra in ER, continue Keppra empirically for now -Seizure, fall precautions -Possibility that infection versus medication may have lowered her seizure threshold -Treatment of UTI as noted below -neurochecks -CT head shows no acute findings; noted mild to moderate small vessel changes consistent with moderate parenchymal volume loss, soft tissue edema of the left frontal scalp Status: Acute (2) Bacterial UTI: -recently started on Cephalexin secondary to UTI as noted from recent UA done in ED (03/08) -repeat UA continues to be indicative of infection; this may have contributed to lower seizure threshold -urine cx: Pseudomonas aueriginosa -seems to have a hx of recurrent UTIs Status: Acute (3) CKD (chronic kidney disease) stage 4, GFR 15-29 ml/min: -has CKD stage 4, baseline Cr appears to be around 2.5-3 Status: Chronic (4) Chronic pain: Status: Chronic Qualifiers: Chronic pain type: other chronic pain Qualified Code(s): G89.29 - Other chronic pain (5) Hypothyroidism: -resume levothyroxine Status: Chronic Qualifiers: Hypothyroidism type: unspecified Qualified Code(s): E03.9 - Hypothyroidism, unspecified (6) Peripheral vascular disease: Status: Chronic (7) HTN (hypertension): -resume oral antihypertensives Status: Chronic Qualifiers: Hypertension type: essential hypertension Qualified Code(s): I10 - Essential (primary) hypertension (8) Atrial fibrillation: -has known paroxymal atrial fibrillation -due to hx of GI bleed, is off Eliquis -telemetry monitoring -f/u with Dr. Ruiz -resume metoprolol -currently rate controlled and NSR on telemetry Status: Chronic Qualifiers: Atrial fibrillation type: paroxysmal Qualified Code(s): I48.0 - Paroxysmal atrial fibrillation (9) Hyperlipidemia: Status: Chronic Qualifiers: Hyperlipidemia type: unspecified Qualified Code(s): E78.5 - Hyperlipidemia, unspecified (10) GERD (gastroesophageal reflux disease): Status: Chronic Qualifiers: Esophagitis presence: esophagitis presence not specified Qualified Code(s): K21.9 - Gastro-esophageal reflux disease without esophagitis Additional A&P Information -Anxiety, depression -NIDDM type II -Dementia -COPD, not oxygen dependent at baseline -suspect recent CVA given reported symptoms of R gaze preference, L-sided hemiparesis -fall precautions -PT/OT evaluations in AM -DVT ppx with heparin -Dispo: return to [facility] -Code status: FULL code, paperwork in chart and verified with PA staff Attestations Medical Necessity Statement*: Lindsey Mcnair's hospital stay will be less than 2 midnights for management of seizure-like activity requiring initiation of antiepileptic medication and close monitoring of her neurological status. Time Spent in Patient Care: Greater than 35 minutes (>than 50% of time spent in counselling and/or direct pt care on unit). Coding Level of Care Code Acute Geriatric Social Worker for Chg Fwd Diagnoses Seizure-like activity R56.9 Bacterial UTI N39.0; A49.9 CKD (chronic kidney disease) stage 4, GFR 15-29 ml/min N18.4 Chronic pain G89.29 Chronic pain type: other chronic pain Hypothyroidism E03.9 Hypothyroidism type: unspecified Peripheral vascular disease I73.9 HTN (hypertension) I10 Hypertension type: essential hypertension Atrial fibrillation I48.0 Atrial fibrillation type: paroxysmal Hyperlipidemia E78.5 Hyperlipidemia type: unspecified GERD (gastroesophageal reflux disease) K21.9 Esophagitis presence: esophagitis presence not specified
[2020-03-12] MEDS: sodium chloride 0.9% 1,000 ML 100 ML IV (17:09)
[2020-03-12] MEDS: heparin 5,000 unit/mL INJ 1 mL 5000 UNIT SUBCUT ×2 (17:12→22:15)
[2020-03-12] MEDS: piperacillin-tazobactam 3.375 GM in sodium chloride 0.9% (plus) 50 ML IV (17:21)
[2020-03-12] MEDS: pantoprazole DR 40 mg Tablet PO (18:12)
[2020-03-12] MEDS: sennosides-docusate Tablet 1 TAB PO (18:12)
--- NOTE | 2020-03-12 19:00 | PC.NURSE ---
Introduction of staff and report received, aidet.
[2020-03-12] MEDS: ALPRAZolam 0.25 mg Tablet PO (22:15)
[2020-03-12] MEDS: donepezil 5 MG Tablet PO (22:15)
--- NOTE | 2020-03-12 22:37 | PC.NURSE ---
during rounds upon walking into patients room, patient in bed eyes closed, right and left arms are elevated moving side to side, patient appears to be having what could be seizure like activity, this lasted about 20-30 secs that nurse was present for and stopped, patient seemed to be unaware of what happened, patient states she is hungry and just wants some pancakes and closes her eyes, patient shows no change in left side facial drop as well as left sided weakness, patient easily to arouse by verbal cue, vital signs 179/90, 72 pulse, 99% RA, 98.2 temp, 20 respirations, patient had a incontinent void as well, alert to year and name. notification of physician Dr. Agudelo completed.
--- NOTE | 2020-03-12 23:25 | PC.NURSE ---
patient family member Quiana Laboy called for a update on patient before going to bed, this nurse discussed with family member that patient had what appeared to be possible seizure like activity, but patient is doing well just sleepy, she is alert x2, and back to her baseline for this nurse at this time, family member also wanted to notify us that patient is very prone to getting c-diff while receiving ABT therapy(notifed dr elias of this and will pass along to day shift in report) also wanted to to add family members to patient chart that are allowed to call and obtain information, jay howell and Osei Monte.
[2020-03-13] VITALS (11 sets, daily range): BP systolic 169–192; BP diastolic 72–88; PULSE 64–69; RESP 16–18; TEMP 36.7–37; O2SAT 88–99; BMI 28.0
[2020-03-13] MEDS: sodium chloride 0.9% 1,000 ML 100 ML IV ×2 (02:33→10:39)
[2020-03-13] MEDS: piperacillin-tazobactam 3.375 GM in sodium chloride 0.9% (plus) 50 ML IV ×2 (02:34→15:26)
[2020-03-13 06:52] LABS: Basophils % 0.4 %; Eosinophils # 0.3 10^3/uL (0.0-0.8); Eosinophils % 4.6 %; Hematocrit 31.2 % (37.0-47.0); Hemoglobin 9.8 g/dL (11.5-15.3); Lymphocytes # 1.6 10^3/uL (0.8-4.8); Lymphocytes % 22.7 %; Mean Corpuscular HGB Conc 31.4 g/dL (30.0-36.0); Mean Corpuscular Hemoglobin 30.7 pg (28.0-34.0); Mean Corpuscular Volume 97.8 fL (81-99); Mean Platelet Volume 9.5 fL (7.4-10.4); Monocytes # 0.6 10^3/uL (0.2-0.9); Monocytes % 8.7 %; Neutrophils # 4.5 10^3/uL (1.8-7.7); Neutrophils % 63.5 %; Nucleated Red Blood Cells % 0 %; Platelet Count 235 10^3/cmm (130-400); Red Blood Count 3.19 10^6/uL (4.1-5.3); White Blood Count 7.1 10^3/uL (4.0-10.0)
[2020-03-13 08:11] LABS: Alanine Aminotransferase 9 U/L (0-33); Albumin Level 3.7 g/dL (3.5-5.2); Alkaline Phosphatase 280 IU/L (35-105); Anion Gap 17.3 (5-19); Aspartate Amino Transferase 22 U/L (0-32); Blood Urea Nitrogen 31 mg/dL (8-23); Calcium 9.1 mg/dL (8.5-10.5); Carbon Dioxide 23 mmol/L (22-29); Chloride 96 mmol/L (98-107); Glucose 152 mg/dL (65-115); Osmolality Calculated 274 mOsm/kg (285-295); Potassium 4.3 mmol/L (3.5-5.1); Sodium 132 mmol/L (136-145); Total Bilirubin 0.3 mg/dL (0.15-1.2); Total Protein 6.7 g/dL (6.6-8.7)
[2020-03-13] MEDS: heparin 5,000 unit/mL INJ 1 mL 5000 UNIT SUBCUT ×2 (08:29→17:05)
[2020-03-13] MEDS: sodium bicarbonate 650 mg Tablet PO (08:30)
[2020-03-13] MEDS: pantoprazole DR 40 mg Tablet PO ×2 (08:31→17:05)
[2020-03-13] MEDS: ferrous sulfate EC 325 mg Tablet PO (08:31)
[2020-03-13] MEDS: sennosides-docusate Tablet 1 TAB PO ×2 (08:31→17:05)
[2020-03-13] MEDS: levothyroxine 150 mcg Tablet 75 MCG PO (08:31)
[2020-03-13] MEDS: FUROsemide 20 mg Tablet PO (08:31)
[2020-03-13] MEDS: amlodipine 10 mg Tablet PO (08:31)
[2020-03-13] MEDS: acetaminophen 325 mg Tablet 650 MG PO ×2 (08:34→14:19)
--- NOTE | 2020-03-13 15:52 | PC.NURSE ---
seizure like activity patient turned head to the far left side and eyes looked to her left upper. The left arm jerked up and down, elevating moving side to side, patient appears to be having what could be seizure like activity, this lasted about 8-10 secs that nurse was present for, patient seemed to be unaware of what happened, patient states she is doing fine did c/o pain in the neck and shoulder she then closes her eyes, patient shows no change in left side facial drop as well as left sided weakness, patient easily to arouse by verbal cue, patient had a incontinent void as well, alert to year and name. Dr. Stanley notified bp 190/82
--- NOTE | 2020-03-13 16:01 | P.PN_ITS ---
Subjective Subjective: Interval history: Patient seen and examined several times throughout the day, she has spent much of the day sleeping off and on. Has had frequent bouts of urinary incontinence so has had to be changed several times throughout the day. Continues to show left upper and lower extremity weakness. Continues to show right gaze preference. Reviewed overnight nursing document ation which indicates that she may have had some seizure-like activity during which time she was noted to have movement of her left upper extremity following which she returned to her inability to move her left side. When awake she is alert and oriented and states that she would like to go home referring to [facility]. I have called and spoken to daughter Neisha Laboy and updated her on patient's clinical status. At approximately 1600, received call from nursing staff stating that patient had another episode of seizure-like activity. Patient's exam is unchanged during my bedside assessment. I have requested 1:1 monitoring. Medications: Reviewed: Yes Medication Review Details: Active Medications Generic Name Dose Route Start Last Admin Trade Name Freq PRN Reason Stop Dose Admin Acetaminophen 650 mg 03/12/20 14:51 03/13/20 14:19 Tylenol PO 650 mg Q6H PRN Administration Mild/Mod Pain Or Temp >/= 101 Alprazolam 0.25 mg 03/12/20 21:00 03/12/20 22:15 Xanax PO 0.25 mg BEDTIME JORGE Administration Amlodipine Besylat e 10 mg 03/13/20 09:00 03/13/20 08:31 Norvasc PO 10 mg DAILY JORGE Administration Bisacodyl 10 mg 03/12/20 14:51 Bisac-Evac PA DAILY PRN Constipation Diclofenac Sodium 1 applic 03/12/20 17:00 Voltaren TOPICAL QID PRN KNEE PAIN Donepezil HCl 5 mg 03/12/20 21:00 03/12/20 22:15 Aricept PO 5 mg BEDTIME JORGE Administration Ferrous Sulfate 325 mg 03/13/20 09:00 03/13/20 08:31 Ferrous Sulfate PO 325 mg DAILY JORGE Administration Furosemide 20 mg 03/13/20 09:00 03/13/20 08:31 Lasix PO 20 mg DAILY JORGE Administration Heparin Sodium (Be ef Lung) 5,000 unit 03/12/20 14:51 03/13/20 08:29 Heparin SUBCUT 5,000 unit Q8H JORGE Administration Levetiracetam 1,00 0 mg/ Sodium 110 mls @ 440 mls /hr 03/12/20 13:45 03/13/20 15:10 Chloride IV 440 mls/hr Q12H JORGE Administration Sodium Chloride 1,000 mls @ 100 m ls/hr 03/12/20 14:51 03/13/20 10:39 Sodium Chloride 0.9% IV 100 mls/hr .Q10H JORGE Administration Piperacillin Sod/T azobactam 50 mls @ 12.5 mls /hr 03/12/20 15:30 03/13/20 15:26 Sod 3.375 gm/ So dium Chloride IV 12.5 mls/hr Q12H JORGE Administration Protocol Lactobacillus Acid ophilus 1 tab 03/13/20 17:00 Floranex PO QID JORGE Levothyroxine Sodi um 75 mcg 03/13/20 09:00 03/13/20 08:31 Synthroid PO 75 mcg DAILY JORGE Administration Morphine Sulfate 2 mg 03/12/20 14:51 Morphine IVP Q4H PRN SEVERE PAIN Non-Formulary Medi cation 1 drop 03/12/20 14:51 Carboxymethylcel lulose Sodium [Ref resh Celluvisc] OPHTHALMIC (EYE) BID PRN unknown Non-Formulary Medi cation 1 cap 03/13/20 09:00 Lactobacillus Rh amnosus Gg [Rayna cervantes] PO DAILY REPLACED BY [facility] Ondansetron HCl 4 mg 03/12/20 14:51 Zofran IVP Q6H PRN NAUSEA AND VOMITI NG Pantoprazole Sodiu m 40 mg 03/12/20 18:00 03/13/20 08:31 Protonix PO 40 mg BID JORGE Administration Senna/Docusate Sod ium 1 tab 03/12/20 18:00 03/13/20 08:31 Senna-S PO 1 tab BID JORGE Administration Sodium Bicarbonate 650 mg 03/13/20 09:00 03/13/20 08:30 Sodium Bicarbona te PO 650 mg DAILY JORGE Administration codeine Allergy (Verified 01/14/20 11:42) Unknown pregabalin [From Lyrica CR] Allergy (Verified 01/14/20 11:42) Unknown Vitals/I&O/Wt Last Vital Signs Temp 98.6 F 03/13/20 07:16 Pulse 69 03/13/20 11:02 Resp 18 03/13/20 11:02 BP 184/86 03/13/20 11:02 Pulse Ox 94 03/13/20 11:02 03/13/20 03/13/20 03/13/20 06:59 14:59 22:59 Intake Total 780 / 1430 810 / 810 Balance 780 / 1130 810 / 810 Weight last 48 hrs Weight 76.345 kg Weight 76.345 kg Weight 65.317 kg Physical Exam Const: COMMON NORMALS: no apparent distress and oriented x3 GENERAL APPEARANCE: cooperative, comfortable and lethargic ORIENTATION/CONSCIOUSNESS: Yes awake and Yes lethargic OTHER: -very restless, arousable to verbal and tactile stimulation, intermittently disoriented HENMT: COMMON NORMALS: normocephalic, head/scalp atraumatic, hearing grossly normal bilaterally and moist oral mucous membranes HEAD & SCALP: normocephalic and atraumatic OTHER: -head turned primarily to the R Eye: COMMON NORMALS: PERRL, EOMs intact bilaterally and conjunctivae normal CONJUNCTIVA: Yes conjunctivae normal PUPIL: Yes PERRL Neck/C-Spine: COMMON NORMALS: full ROM GENERAL: Yes normal visual inspection and Yes trachea midline Chest: COMMONS NORMALS: inspection of chest normal Resp: COMMON NORMALS: normal respiratory effort, no retractions and no use of accessory muscles EFFORT & INSPECTION: Yes able to speak in complete sentences, Yes symmetric chest movement and No tachypneic AUSCULTATION: diminished lung sounds OTHER: -on 2 L NC Cardio: COMMON NORMALS: regular rate, regular rhythm, S1 normal heart sound, S2 normal heart sound and no murmurs RATE: regular rate RHYTHM: regular rhythm HEART SOUNDS: S1 normal and S2 normal GI: COMMON NORMALS: normal to inspection, nondistended, normoactive bowel sounds, soft to palpation and non-tender PALPATION: Yes soft OTHER: -pain pump palpable in LLQ Extremity: COMMON NORMALS: normal to inspection, full ROM, no clubbing, cyanosis or edema and no pedal edema Neuro: COMMON NORMALS: oriented x3, moves all extremities, no focal motor deficits, no sensory deficits noted and gait normal SENSORIUM/ORIENTATION: Yes lethargic OTHER: -able to motor room controller on the R, appears to be flaccid on the L -R gaze preference -speech difficult to understand -Twitching movements of right hand and left foot Psych: COMMON NORMALS: mental status grossly normal, thought process normal and affect normal THOUGHT PROCESS: normal thought process Skin: COMMON NORMALS: no rashes or lesions noted, no jaundice, no petechiae and no mottling GENERAL SKIN EXAM: no rashes or lesions noted OTHER: - noted bruising of L side of face Data : 03/13/20 06:34 03/13/20 07:45 Micro: Microbiology 03/12/20 12:27 Urine Culture - Preliminary Urine,Clean Catch Gram Negative Rods A&P Assessment and plan (1) Seizure-like activity: -Witnessed seizure-like activity in the ER, with 2 additional episodes since admission. -No documented history of prior seizure-like activity, has not been on any AEDs other than Tegretol which had been added for pain control about 2-3 weeks ago per [facility] -Loaded with Keppra in ER, continue Keppra empirically for now -Seizure, fall precautions -Possibility that infection versus medication may have lowered her seizure threshold -Treatment of UTI as noted below -neurochecks -CT head shows no acute findings; noted mild to moderate small vessel changes consistent with moderate parenchymal volume loss, soft tissue edema of the left frontal scalp -1:1 monitoring requested as I am concerned about patient safety as well as noted inconsistency in presentation of symptoms Status: Acute (2) Bacterial UTI: -recently started on Cephalexin secondary to UTI as noted from recent UA done in ED (03/08) -repeat UA continues to be indicative of infection; this may have contributed to lower seizure threshold -urine cx: Pseudomonas aueriginosa -seems to have a hx of recurrent UTIs Status: Acute (3) CKD (chronic kidney disease) stage 4, GFR 15-29 ml/min: -has CKD stage 4, baseline Cr appears to be around 2.5-3 Status: Chronic (4) Chronic pain: Status: Chronic Qualifiers: Chronic pain type: other chronic pain Qualified Code(s): G89.29 - Other chronic pain (5) Hypothyroidism: -on levothyroxine Status: Chronic Qualifiers: Hypothyroidism type: unspecified Qualified Code(s): E03.9 - Hypothyroidism, unspecified (6) Peripheral vascular disease: Status: Chronic (7) HTN (hypertension): -on oral antihypertensives Status: Chronic Qualifiers: Hypertension type: essential hypertension Qualified Code(s): I10 - Essential (primary) hypertension (8) Atrial fibrillation: -has known paroxymal atrial fibrillation -due to hx of GI bleed, is off Eliquis -telemetry monitoring -f/u with Dr. Ruiz -resume metoprolol -currently rate controlled and NSR on telemetry Status: Chronic Qualifiers: Atrial fibrillation type: paroxysmal Qualified Code(s): I48.0 - Paroxysmal atrial fibrillation (9) Hyperlipidemia: Status: Chronic Qualifiers: Hyperlipidemia type: unspecified Qualified Code(s): E78.5 - Hyperlipidemia, unspecified (10) GERD (gastroesophageal reflux disease): Status: Chronic Qualifiers: Esophagitis presence: esophagitis presence not specified Qualified Code(s): K21.9 - Gastro-esophageal reflux disease without esophagitis Additional A&P Information -Anxiety, depression -NIDDM type II -Dementia -COPD, not oxygen dependent at baseline -suspect recent CVA given reported symptoms of R gaze preference, L-sided hemiparesis which clinically fits picture of CVA; however, with timeline, inconsistency of symptoms and no objective findings on CT head to correlate with this, makes picture complicated. MRI would not really change director and may be difficult for patient to tolerate so would hold off on this. Consider neurology outpatient follow-up -patient is prone to C.diffficile colitis with antibiotic treatment; add probiotics -fall precautions -PT/OT evaluations appreciated -DVT ppx with heparin -Dispo: family is seeking alternative SNF, preferably [facility] in [place], do not wish return to [facility]. -Code status: FULL code, paperwork in chart and verified with [place] staff -spoke extensively with daughter Neisha Laboy ([phone]), she does not wish to have patient return to [facility] which patient agrees with, is seeking alternative SNF in [place] where patient has other family Attestations Medical Necessity Statement*: Patient requires hospitalization for continued management of seizure-like activity, UTI; pending appropriate disposition. Time Spent in Patient Care: Greater than 35 minutes (>than 50% of time spent in counselling and/or direct pt care on unit) . Coding Level of Care Code Acute Farm Planner for g Fwd Diagnoses Seizure-like activity R56.9 Bacterial UTI N39.0; A49.9 CKD (chronic kidney disease) stage 4, GFR 15-29 ml/min N18.4 Chronic pain G89.29 Chronic pain type: other chronic pain Hypothyroidism E03.9 Hypothyroidism type: unspecified Peripheral vascular disease I73.9 HTN (hypertension) I10 Hypertension type: essential hypertension Atrial fibrillation I48.0 Atrial fibrillation type: paroxysmal Hyperlipidemia E78.5 Hyperlipidemia type: unspecified GERD (gastroesophageal reflux disease) K21.9 Esophagitis presence: esophagitis presence not specified
[2020-03-13] MEDS: morphine 4 mg/mL SDV 1 mL 2 MG IVP (17:01)
[2020-03-13] MEDS: cloNIDine 0.1 mg Tablet PO ×2 (17:05→20:11)
[2020-03-13] MEDS: lactobacillus 1 Tablet 1 TAB PO ×2 (17:05→20:11)
[2020-03-13] MEDS: ALPRAZolam 0.25 mg Tablet PO (20:11)
[2020-03-13] MEDS: donepezil 5 MG Tablet PO (20:11)
[2020-03-13] MEDS: diclofenac 1% Topical Gel 100 gm 1 APPLIC TOPICAL (21:21)
[2020-03-14] VITALS (12 sets, daily range): BP systolic 140–193; BP diastolic 74–100; PULSE 62–69; RESP 16–18; TEMP 36.4–36.9; O2SAT 92–100
[2020-03-14] MEDS: heparin 5,000 unit/mL INJ 1 mL 5000 UNIT SUBCUT ×3 (00:24→15:34)
[2020-03-14] MEDS: piperacillin-tazobactam 3.375 GM in sodium chloride 0.9% (plus) 50 ML IV ×3 (03:37→20:48)
[2020-03-14 06:14] LABS: Basophils % 0.5 %; Eosinophils # 0.5 10^3/uL (0.0-0.8); Eosinophils % 8.9 %; Hematocrit 32.8 % (37.0-47.0); Hemoglobin 10.2 g/dL (11.5-15.3); Lymphocytes # 0.9 10^3/uL (0.8-4.8); Lymphocytes % 15.1 %; Mean Corpuscular HGB Conc 31.1 g/dL (30.0-36.0); Mean Corpuscular Hemoglobin 31.2 pg (28.0-34.0); Mean Corpuscular Volume 100.3 fL (81-99); Mean Platelet Volume 9.4 fL (7.4-10.4); Monocytes # 0.4 10^3/uL (0.2-0.9); Monocytes % 6.1 %; Neutrophils # 4.1 10^3/uL (1.8-7.7); Neutrophils % 68.9 %; Nucleated Red Blood Cells % 0 %; Platelet Count 209 10^3/cmm (130-400); Red Blood Count 3.27 10^6/uL (4.1-5.3); Red Cell Distribution Width 12.9 % (12.1-15.1)
--- NOTE | 2020-03-14 06:25 | PC.NURSE ---
Addendum entered by Lillian Lal RN 03/14/20 20:20: patient was having seizure-like activity Original Note: Patient has had 15 seizures starting at 2030 03/13/2020, full body involvement each lasting 15-60 seconds. During a couple episodes she was talking with us. Dr. Agudelo notified, no new orders received. Will continue to monitor patient.
[2020-03-14 06:32] LABS: Anion Gap 17.1 (5-19); Blood Urea Nitrogen 24 mg/dL (8-23); Calcium 9.3 mg/dL (8.5-10.5); Carbon Dioxide 23 mmol/L (22-29); Chloride 100 mmol/L (98-107); Glucose 160 mg/dL (65-115); Osmolality Calculated 282 mOsm/kg (285-295); Potassium 4.1 mmol/L (3.5-5.1); Sodium 136 mmol/L (136-145)
--- NOTE | 2020-03-14 08:00 | PC.OT ---
Per notes and report: patient has had multiple seizures last night and this morning. Will hold skilled OT this a.m. and check on patient in p.m.
--- NOTE | 2020-03-14 08:58 | P.PN_ITS ---
Subjective Subjective: Interval history: Patient seen and examined, sitter at bedside, reviewed overnight nursing documentation noting multiple seizure-like episodes during which patient was able to move all of her extremities, and was able to be appropriately conversant following some of these episodes. During my evaluation this morning she is back to being unable to turn her head to the left, move her left upper or lower extremity. Continues to be incontinent to though she is aware when she voids. She remains on Keppra 1000 mg BID IV. Medications: Reviewed: Yes Medication Review Details: Active Medications Generic Name Dose Route Start Last Admin Trade Name Freq PRN Reason Stop Dose Admin Acetaminophen 650 mg 03/12/20 14:51 03/13/20 14:19 Tylenol PO 650 mg Q6H PRN Administration Mild/Mod Pain Or Temp >/= 101 Alprazolam 0.25 mg 03/12/20 21:00 03/13/20 20:11 Xanax PO 0.25 mg BEDTIME JORGE Administration Amlodipine Besylat e 10 mg 03/13/20 09:00 03/13/20 08:31 Norvasc PO 10 mg DAILY JORGE Administration Bisacodyl 10 mg 03/12/20 14:51 Bisac-Evac UT DAILY PRN Constipation Clonidine HCl 0.1 mg 03/13/20 16:35 03/13/20 20:11 Catapres PO 0.1 mg TID JORGE Administration Diclofenac Sodium 1 applic 03/12/20 17:00 03/13/20 21:21 Voltaren TOPICAL 1 applic QID PRN Administration KNEE PAIN Donepezil HCl 5 mg 03/12/20 21:00 03/13/20 20:11 Aricept PO 5 mg BEDTIME JORGE Administration Ferrous Sulfate 325 mg 03/13/20 09:00 03/13/20 08:31 Ferrous Sulfate PO 325 mg DAILY JORGE Administration Furosemide 20 mg 03/13/20 09:00 03/13/20 08:31 Lasix PO 20 mg DAILY JORGE Administration Heparin Sodium (Be ef Lung) 5,000 unit 03/12/20 14:51 03/14/20 00:24 Heparin SUBCUT 5,000 unit Q8H JORGE Administration Piperacillin Sod/T azobactam 50 mls @ 12.5 mls /hr 03/12/20 15:30 03/14/20 03:37 Sod 3.375 gm/ So dium Chloride IV 12.5 mls/hr Q12H JORGE Administration Protocol Lactobacillus Acid ophilus 1 tab 03/13/20 17:00 03/13/20 20:11 Floranex PO 1 tab QID JORGE Administration Levothyroxine Sodi um 75 mcg 03/13/20 09:00 03/13/20 08:31 Synthroid PO 75 mcg DAILY JORGE Administration Morphine Sulfate 2 mg 03/12/20 14:51 03/13/20 17:01 Morphine IVP 2 mg Q4H PRN Administration SEVERE PAIN Non-Formulary Medi cation 1 drop 03/12/20 14:51 Carboxymethylcel lulose Sodium [Ref resh Celluvisc] OPHTHALMIC (EYE) BID PRN unknown Non-Formulary Medi cation 1 cap 03/13/20 09:00 Lactobacillus Rh amnosus Gg [Cultrolan cervantes] PO DAILY JORGE Ondansetron HCl 4 mg 03/12/20 14:51 Zofran IVP Q6H PRN NAUSEA AND VOMITI NG Pantoprazole Sodiu m 40 mg 03/12/20 18:00 03/13/20 17:05 Protonix PO 40 mg BID JORGE Administration Senna/Docusate Sod ium 1 tab 03/12/20 18:00 03/13/20 17:05 Senna-S PO 1 tab BID JORGE Administration Sodium Bicarbonate 650 mg 03/13/20 09:00 03/13/20 08:30 Sodium Bicarbona te PO 650 mg DAILY JORGE Administration codeine Allergy (Verified 01/14/20 11:42) Unknown pregabalin [From Lyrica CR] Allergy (Verified 01/14/20 11:42) Unknown Vitals/I&O/Wt Last Vital Signs Temp 98.3 F 03/14/20 08:00 Pulse 66 03/14/20 08:00 Resp 17 03/14/20 08:00 BP 193/74 03/14/20 08:00 Pulse Ox 100 03/14/20 08:00 03/13/20 03/14/20 03/14/20 22:59 06:59 14:59 Intake Total 640 / 1450 110 / 1560 360 / 360 Balance 640 / 1450 110 / 1560 360 / 360 Weight last 48 hrs Weight 76.345 kg Weight 76.345 kg Weight 65.317 kg Physical Exam Const: COMMON NORMALS: no apparent distress and oriented x3 GENERAL APPEARANCE: cooperative, comfortable and lethargic ORIENTATION/CONSCIOUSNESS: Yes awake and Yes lethargic OTHER: -very restless, arousable to verbal and tactile stimulation, intermittently disoriented HENMT: COMMON NORMALS: normocephalic, head/scalp atraumatic, hearing grossly normal bilaterally and moist oral mucous membranes HEAD & SCALP: normocephalic and atraumatic OTHER: -head turned primarily to the R Eye: COMMON NORMALS: PERRL, EOMs intact bilaterally and conjunctivae normal CONJUNCTIVA: Yes conjunctivae normal PUPIL: Yes PERRL Neck/C-Spine: COMMON NORMALS: full ROM GENERAL: Yes normal visual inspection and Yes trachea midline Chest: COMMONS NORMALS: inspection of chest normal Resp: COMMON NORMALS: normal respiratory effort, no retractions and no use of accessory muscles EFFORT & INSPECTION: Yes able to speak in complete sentences, Yes symmetric chest movement and No tachypneic AUSCULTATION: diminished lung sounds OTHER: -on 2 L NC Cardio: COMMON NORMALS: regular rate, regular rhythm, S1 normal heart sound, S2 normal heart sound and no murmurs RATE: regular rate RHYTHM: regular rhythm HEART SOUNDS: S1 normal and S2 normal GI: COMMON NORMALS: normal to inspection, nondistended, normoactive bowel sounds, soft to palpation and non-tender PALPATION: Yes soft OTHER: -pain pump palpable in LLQ Extremity: COMMON NORMALS: normal to inspection, full ROM, no clubbing, cyanosis or edema and no pedal edema Neuro: COMMON NORMALS: oriented x3, moves all extremities, no focal motor def icits, no sensory deficits noted and gait normal SENSORIUM/ORIENTATION: Yes lethargic OTHER: -able to java tech lead on the R, appears to be flaccid on the L -R gaze preference -speech difficult to understand -Twitching movements of right hand and left foot Psych: COMMON NORMALS: mental status grossly normal, thought process normal and affect normal THOUGHT PROCESS: normal thought process Skin: COMMON NORMALS: no rashes or lesions noted, no jaundice, no petechiae and no mottling GENERAL SKIN EXAM: no rashes or lesions noted OTHER: - noted bruising of L side of face Data : 03/14/20 05:50 03/14/20 05:50 Micro: Microbiology 03/12/20 12:27 Urine Culture - Preliminary Urine,Clean Catch Gram Negative Rods A&P Assessment and plan (1) Seizure-like activity: -Witnessed seizure-like activity in the ER, with multiple additional episodes since admission. -No documented history of prior seizure-like activity, has not been on any AEDs other than Tegretol which had been added for pain control about 2-3 weeks ago per [facility] -Loaded with Keppra in ER, continue Keppra empirically for now -Seizure, fall precautions -Possibility that infection versus medication may have lowered her seizure threshold -Treatment of UTI as noted below -neurochecks -CT head shows no acute findings; noted mild to moderate small vessel changes consistent with moderate parenchymal volume loss, soft tissue edema of the left frontal scalp -1:1 monitoring requested as I am concerned about patient safety as well as noted inconsistency in presentation of symptoms -with continued inconsistency of symptoms and episodes, these are very suspicious for psychogenic nonepileptic seizures. Status: Acute (2) Bacterial UTI: -recently started on Cephalexin secondary to UTI as noted from recent UA done in ED (03/08) -repeat UA continues to be indicative of infection; this may have contributed to lower seizure threshold -urine cx: Pseudomonas aueriginosa; repeat urine cx: GNRs, pending ID & sensitivity -seems to have a hx of recurrent UTIs Status: Acute (3) CKD (chronic kidney disease) stage 4, GFR 15-29 ml/min: -has CKD stage 4, baseline Cr appears to be around 2.5-3 Status: Chronic (4) Chronic pain: Status: Chronic Qualifiers: Chronic pain type: other chronic pain Qualified Code(s): G89.29 - Other chronic pain (5) Hypothyroidism: -on levothyroxine Status: Chronic Qualifiers: Hypothyroidism type: unspecified Qualified Code(s): E03.9 - Hypothyroidism, unspecified (6) Peripheral vascular disease: Status: Chronic (7) HTN (hypertension): -on oral antihypertensives Status: Chronic Qualifiers: Hypertension type: essential hypertension Qualified Code(s): I10 - Essential (primary) hypertension (8) Atrial fibrillation: -has known paroxymal atrial fibrillation -due to hx of GI bleed, is off Eliquis -telemetry monitoring -f/u with Dr. Ruiz -resume metoprolol -currently rate controlled and NSR on telemetry Status: Chronic Qualifiers: Atrial fibrillation type: paroxysmal Qualified Code(s): I48.0 - Paroxysmal atrial fibrillation (9) Hyperlipidemia: Status: Chronic Qualifiers: Hyperlipidemia type: unspecified Qualified Code(s): E78.5 - Hyperlipidemia, unspecified (10) GERD (gastroesophageal reflux disease): Status: Chronic Qualifiers: Esophagitis presence: esophagitis presence not specified Qualified Code(s): K21.9 - Gastro-esophageal reflux disease without esophagitis Additional A&P Information -Anxiety, depression -NIDDM type II -Dementia -COPD, not oxygen dependent at baseline -suspect recent CVA given reported symptoms of R gaze preference, L-sided hemiparesis which clinically fits picture of CVA; however, with timeline, inconsistency of symptoms and no objective findings on CT head to correlate with this, makes picture complicated. MRI would not really pattern changer and repairer and may be difficult for patient to tolerate so would hold off on this. Consider neurology outpatient follow-up -patient is prone to C.diffficile colitis with antibiotic treatment; added probiotics -fall precautions -PT/OT evaluations appreciated -DVT ppx with heparin -Dispo: family is seeking alternative SNF, preferably [facility] in [place], do not wish return to [facility]. -Code status: FULL code, paperwork in chart and verified with [place] staff -spoke extensively with daughter Neisha Laboy ([phone]), she does not wish to have patient return to [facility] which patient agrees with, is seeking alternative SNF in [place] where patient has other family Attestations Medical Necessity Statement*: Patient requires hospitalization for continued antibiotic treatment for UTI pending urine cx results, and pending appropriate disposition. Time Spent in Patient Care: 16 - 35 minutes (>than 50% of time spent in counselling and/or direct pt care on unit) . Coding Level of Care Code Acute Transfer And Pumphouse Operator Chief for g Fwd Diagnoses Seizure-like activity R56.9 Bacterial UTI N39.0; A49.9 CKD (chronic kidney disease) stage 4, GFR 15-29 ml/min N18.4 Chronic pain G89.29 Chronic pain type: other chronic pain Hypothyroidism E03.9 Hypothyroidism type: unspecified Peripheral vascular disease I73.9 HTN (hypertension) I10 Hypertension type: essential hypertension Atrial fibrillation I48.0 Atrial fibrillation type: paroxysmal Hyperlipidemia E78.5 Hyperlipidemia type: unspecified GERD (gastroesophageal reflux disease) K21.9 Esophagitis presence: esophagitis presence not specified
[2020-03-14] MEDS: FUROsemide 20 mg Tablet PO (09:23)
[2020-03-14] MEDS: amlodipine 10 mg Tablet PO (09:23)
[2020-03-14] MEDS: pantoprazole DR 40 mg Tablet PO ×2 (09:23→18:30)
[2020-03-14] MEDS: ferrous sulfate EC 325 mg Tablet PO (09:23)
[2020-03-14] MEDS: levothyroxine 150 mcg Tablet 75 MCG PO (09:24)
[2020-03-14] MEDS: sennosides-docusate Tablet 1 TAB PO ×2 (09:25→18:30)
[2020-03-14] MEDS: cloNIDine 0.1 mg Tablet PO ×3 (09:25→20:47)
[2020-03-14] MEDS: lactobacillus 1 Tablet 1 TAB PO ×4 (09:26→20:47)
[2020-03-14] MEDS: levETIRAcetam 500 mg Tablet 750 MG PO ×2 (09:29→18:30)
--- NOTE | 2020-03-14 11:01 | PC.CHAP ---
Pastoral Care Encounter/Spiritual Assessment Type of Contact [] Declined finishing and shipping supervisor visit [] Patient/Family/Request visit [] Outpatient visit [] Follow-up visit [] Physician referral [] Code/Alert [x] Routine visit [] Staff referral [] Actively dying [] Patient sleeping [] Family support [] [] Out of room [] Palliative care [] [x] Receiving care in room [] Pre-surgical visit [] Trauma [] Long length of stay [] ICU visit [] Other: Relational/Emotional Strength [] Patient feels connected with others/family/visitors/staff [] Distress [] Loneliness/isolation [] Abandonment Spirituality of Patient [x] Person of Marily [] Attends Holiness of their Marily [x] Believes in Prayer [] Reads Bible or Orthodox materials [] There are Spiritual issues to be addressed Lithographic Stripper Interventions [x] Prayer [] Active listening [] Non-anxious presence [] Spiritual/emotional support [] Crisis/trauma care [] Spiritual counseling [] Bereavement support [] Provided bereavement packet [] Provided Bible/devotional materials [] Provided toy/stuffed animal, coloring book to patient or family member [] Provided Communion [] Anointing/[place] [] Salvation [x] Completed spiritual assessment [] Other: Impact on Illness or Injury [] Angry [] Fearful [] Anxious [] Often cries [] Exhaustion [] Unable to work [] Unable to attend yazidi [] Unable to walk/stand [] Unable to read [] Unable to drive [] Unable to eat/drink [] Unable to sleep [] Unable to be with family [] Patient intubated [] Other: Summary Patient restless. Wanted prayer, but also for her children. She requested her Landscape Account Manager, but understands to entry. Stanley will revisit before days end. Time spent with patient 15min
[2020-03-14] MEDS: acetaminophen 325 mg Tablet 650 MG PO ×2 (12:15→20:48)
[2020-03-14] MEDS: diclofenac 1% Topical Gel 100 gm 1 APPLIC TOPICAL ×2 (15:27→20:57)
[2020-03-14] MEDS: morphine 4 mg/mL SDV 1 mL 2 MG IVP (15:50)
--- NOTE | 2020-03-14 16:00 | PC.OT ---
OT tx withheld today as pt having difficulty with seizure like activity and resting at this time. Plan to resume OT tx tomorrow.
[2020-03-14] MEDS: donepezil 5 MG Tablet PO (20:47)
[2020-03-14] MEDS: ALPRAZolam 0.25 mg Tablet PO (20:47)
[2020-03-15] VITALS (12 sets, daily range): BP systolic 132–193; BP diastolic 82–106; PULSE 60–85; RESP 17–18; TEMP 36.6–37.1; O2SAT 94–98
[2020-03-15] MEDS: heparin 5,000 unit/mL INJ 1 mL 5000 UNIT SUBCUT ×3 (00:02→16:16)
[2020-03-15] MEDS: piperacillin-tazobactam 3.375 GM in sodium chloride 0.9% (plus) 50 ML IV ×3 (04:52→21:03)
[2020-03-15] MEDS: acetaminophen 325 mg Tablet 650 MG PO ×2 (05:42→12:17)
--- NOTE | 2020-03-15 07:52 | PC.NURSE ---
SEIZURE LIKE ACTIVITY upon Rounding patient requested a drink of cranberry juice and i handed her the cup. She then began shaking (dropping) cup and turning head to far left and shaking all extremities in what appears to be a seizure. This event lasted about 8 seconds. Once the shaking stopped the patient then asked for a drink. I assessed neuros and no changes in what is already noted. Left side of body remains flaccid with no worsening. FAYEW, FENCE REPAIRMAN
[2020-03-15] MEDS: lactobacillus 1 Tablet 1 TAB PO ×4 (08:10→20:18)
[2020-03-15] MEDS: amlodipine 10 mg Tablet PO (08:10)
[2020-03-15] MEDS: FUROsemide 20 mg Tablet PO (08:10)
[2020-03-15] MEDS: ferrous sulfate EC 325 mg Tablet PO (08:11)
--- NOTE | 2020-03-15 08:20 | P.PN_ITS ---
Subjective Subjective: Interval history: Patient seen and examined, noted to have a seizure-like episode earlier this morning though none documented overnight. During my evaluation remains unable to move left upper or left lower extremity, continues to gaze primarily to the right. MRI head ordered. Quite hypertensive this morning so will adjust her oral antihypertensives. Medications: Reviewed: Yes Medication Review Details: Active Medications Generic Name Dose Route Start Last Admin Trade Name Freq PRN Reason Stop Dose Admin Acetaminophen 650 mg 03/12/20 14:51 03/15/20 05:42 Tylenol PO 650 mg Q6H PRN Administration Mild/Mod Pain Or Temp >/= 101 Alprazolam 0.25 mg 03/12/20 21:00 03/14/20 20:47 Xanax PO 0.25 mg BEDTIME JORGE Administration Amlodipine Besylat e 10 mg 03/13/20 09:00 03/15/20 08:10 Norvasc PO 10 mg DAILY JORGE Administration Bisacodyl 10 mg 03/12/20 14:51 Bisac-Evac IN DAILY PRN Constipation Carvedilol 3.125 mg 03/15/20 09:00 03/15/20 09:08 Coreg PO 3.125 mg BID JORGE Administration Clonidine HCl 0.2 mg 03/15/20 09:00 03/15/20 09:12 Catapres PO 0.2 mg TID JORGE Administration Diclofenac Sodium 1 applic 03/12/20 17:00 03/14/20 20:57 Voltaren TOPICAL 1 applic QID PRN Administration KNEE PAIN Donepezil HCl 5 mg 03/12/20 21:00 03/14/20 20:47 Aricept PO 5 mg BEDTIME JORGE Administration Ferrous Sulfate 325 mg 03/13/20 09:00 03/15/20 08:11 Ferrous Sulfate PO 325 mg DAILY JORGE Administration Furosemide 20 mg 03/13/20 09:00 03/15/20 08:10 Lasix PO 20 mg DAILY JORGE Administration Heparin Sodium (Be ef Lung) 5,000 unit 03/12/20 14:51 03/15/20 08:11 Heparin SUBCUT 5,000 unit Q8H JORGE Administration Piperacillin Sod/T azobactam 50 mls @ 12.5 mls /hr 03/14/20 13:00 03/15/20 04:52 Sod 3.375 gm/ So dium Chloride IV 12.5 mls/hr Q8H JORGE Administration Protocol Lactobacillus Acid ophilus 1 tab 03/13/20 17:00 03/15/20 08:10 Floranex PO 1 tab QID JORGE Administration Levetiracetam 750 mg 03/14/20 09:05 03/15/20 09:07 Keppra PO 750 mg BID JORGE Administration Levothyroxine Sodi um 75 mcg 03/13/20 09:00 03/15/20 09:07 Synthroid PO 75 mcg DAILY JORGE Administration Morphine Sulfate 2 mg 03/12/20 14:51 03/14/20 15:50 Morphine IVP 2 mg Q4H PRN Administration SEVERE PAIN Non-Formulary Medi cation 1 drop 03/12/20 14:51 Carboxymethylcel lulose Sodium [Ref resh Celluvisc] OPHTHALMIC (EYE) BID PRN unknown Non-Formulary Medi cation 1 cap 03/13/20 09:00 Lactobacillus Rh amnosus Gg [Cultur billy] PO DAILY JORGE Ondansetron HCl 4 mg 03/12/20 14:51 Zofran IVP Q6H PRN NAUSEA AND VOMITI NG Pantoprazole Sodiu m 40 mg 03/12/20 18:00 03/15/20 09:07 Protonix PO 40 mg BID JORGE Administration Senna/Docusate Sod ium 1 tab 03/12/20 18:00 03/15/20 09:13 Senna-S PO 1 tab BID JORGE Administration Sodium Bicarbonate 650 mg 03/13/20 09:00 03/15/20 09:12 Sodium Bicarbona te PO 650 mg DAILY JORGE Administration codeine Allergy (Verified 01/14/20 11:42) Unknown pregabalin [From Lyrica CR] Allergy (Verified 01/14/20 11:42) Unknown Vitals/I&O/Wt Last Vital Signs Temp 97.9 F 03/15/20 04:00 Pulse 60 03/15/20 07:59 Resp 18 03/15/20 07:59 BP 193/87 03/15/20 08:10 Pulse Ox 97 03/15/20 07:59 03/14/20 03/15/20 03/15/20 22:59 06:59 14:59 Intake Total 110 / 950 50 / 1000 Output Total 250 / 290 Balance 110 / 910 -200 / 710 Weight last 48 hrs Weight 75.841 kg Weight 76.459 kg Weight 76.345 kg Physical Exam Const: COMMON NORMALS: no apparent distress, oriented x3 and alert GENERAL APPEARANCE: cooperative and comfortable ORIENTATION/CONSCIOUSNESS: Yes awake OTHER: -very restless, arousable to verbal and tactile stimulation, interm ittently disoriented HENMT: COMMON NORMALS: normocephalic, head/scalp atraumatic, hearing grossly normal bilaterally and moist oral mucous membranes HEAD & SCALP: normocephalic and atraumatic OTHER: -head turned primarily to the R Eye: COMMON NORMALS: PERRL, EOMs intact bilaterally and conjunctivae normal CONJUNCTIVA: Yes conjunctivae normal PUPIL: Yes PERRL Neck/C-Spine: COMMON NORMALS: full ROM GENERAL: Yes normal visual inspection and Yes trachea midline Chest: COMMONS NORMALS: inspection of chest normal Resp: COMMON NORMALS: normal respiratory effort, no retractions and no use of accessory muscles EFFORT & INSPECTION: Yes able to speak in complete sentences, Yes symmetric chest movement and No tachypneic AUSCULTATION: diminished lung sounds OTHER: -on RA Cardio: COMMON NORMALS: regular rate, regular rhythm, S1 normal heart sound, S2 normal heart sound and no murmurs RATE: regular rate RHYTHM: regular rhythm HEART SOUNDS: S1 normal and S2 normal GI: COMMON NORMALS: normal to inspection, nondistended, normoactive bowel sounds, soft to palpation and non-tender PALPATION: Yes soft OTHER: -pain pump palpable in LLQ Extremity: COMMON NORMALS: normal to inspection, full ROM, no clubbing, cyanosis or edema and no pedal edema Neuro: COMMON NORMALS: oriented x3, moves all extremities, no focal motor deficits and no sensory deficits noted SENSORIUM/ORIENTATION: Yes alert SPEECH: speech normal OTHER: -able to tool filer hand on the R, appears to be flaccid on the L -R gaze preference -Twitching movements of right hand and left foot Psych: COMMON NORMALS: mental status grossly normal, thought process normal and affect normal THOUGHT PROCESS: normal thought process Skin: COMMON NORMALS: no rashes or lesions noted, no jaundice, no petechiae and no mottling GENERAL SKIN EXAM: no rashes or lesions noted OTHER: - noted bruising of L side of face Data : 03/14/20 05:50 03/14/20 05:50 A&P Assessment and plan (1) Seizure-like activity: -Witnessed seizure-like activity in the ER, with multiple additional episodes since admission. -No documented history of prior seizure-like activity, has not been on any AEDs other than Tegretol which had been added for pain control about 2-3 weeks ago per [facility] -Loaded with Keppra in ER, continue Keppra empirically for now -Seizure, fall precautions -Possibility that infection versus medication may have lowered her seizure thr eshold -Treatment of UTI as noted below -neurochecks -CT head shows no acute findings; noted mild to moderate small vessel changes consistent with moderate parenchymal volume loss, soft tissue edema of the left frontal scalp -1:1 monitoring requested as I am concerned about patient safety as well as noted inconsistency in presentation of symptoms -with continued inconsistency of symptoms and episodes, these are very suspicious for psychogenic nonepileptic seizures. -MRI head without contrast ordered; uncertain she will be able to lay still long enough for appropriate images to be obtained but want to r/o organic pathology Status: Acute (2) Bacterial UTI: -recently started on Cephalexin secondary to UTI as noted from recent UA done in ED (03/08) -repeat UA continues to be indicative of infection; this may have contributed to lower seizure threshold -urine cx: Pseudomonas aueriginosa; repeat urine cx: GNRs, pending ID & sensitivity -seems to have a hx of recurrent UTIs Status: Acute (3) CKD (chronic kidney disease) stage 4, GFR 15-29 ml/min: -has CKD stage 4, baseline Cr appears to be around 2.5-3 Status: Chronic (4) Chronic pain: Status: Chronic Qualifiers: Chronic pain type: other chronic pain Qualified Code(s): G89.29 - Other chronic pain (5) Hypothyroidism: -on levothyroxine Status: Chronic Qualifiers: Hypothyroidism type: unspecified Qualified Code(s): E03.9 - Hypothyroidism, unspecified (6) Peripheral vascular disease: Status: Chronic (7) HTN (hypertension): -on oral antihypertensives Status: Chronic Qualifiers: Hypertension type: essential hypertension Qualified Code(s): I10 - Essential (primary) hypertension (8) Atrial fibrillation: -has known paroxymal atrial fibrillation -due to hx of GI bleed, is off Eliquis -telemetry monitoring -f/u with Dr. Sara -on metoprolol -currently rate controlled and NSR on telemetry Status: Chronic Qualifiers: Atrial fibrillation type: paroxysmal Qualified Code(s): I48.0 - Paroxysmal atrial fibrillation (9) Hyperlipidemia: Status: Chronic Qualifiers: Hyperlipidemia type: unspecified Qualified Code(s): E78.5 - Hyperlipidemia, unspecified (10) GERD (gastroesophageal reflux disease): Status: Chronic Qualifiers: Esophagitis presence: esophagitis presence not specified Qualified Code(s): K21.9 - Gastro-esophageal reflux disease without esophagitis Additional A&P Information -Anxiety, depression -NIDDM type II -Dementia -COPD, not oxygen dependent at baseline -suspect recent CVA given reported symptoms of R gaze preference, L-sided hemiparesis which clinically fits picture of CVA; however, with timeline, inconsistency of symptoms and no objective findings on CT head to correlate with this, makes picture complicated. Will order MRI if patient can tolerate this. Consider neurology outpatient follow-up -patient is prone to C.difficile colitis with antibiotic treatment; added probiotics -fall precautions -PT/OT evaluations appreciated -DVT ppx with heparin -Dispo: has been accepted at [facility] in [place], do not wish return to [facility]. Anticipate discharge tomorrow with bed availability. -Code status: FULL code, paperwork in chart and verified with CT staff -spoke extensively with daughter Neisha Laboy ([phone]) as well as grandson (who is a physician) ([phone]) Attestations Medical Necessity Statement*: Patient requires hospitalization for continued management of seizure like activity pending MRI and appropriate disposition Time Spent in Patient Care: 16 - 35 minutes (>than 50% of time spent in counselling and/or direct pt care on unit) . Coding Level of Care Code Acute [employer] Diagnoses Seizure-like activity R56.9 Bacterial UTI N39.0; A49.9 CKD (chronic kidney disease) stage 4, GFR 15-29 ml/min N18.4 Chronic pain G89.29 Chronic pain type: other chronic pain Hypothyroidism E03.9 Hypothyroidism type: unspecified Peripheral vascular disease I73.9 HTN (hypertension) I10 Hypertension type: essential hypertension Atrial fibrillation I48.0 Atrial fibrillation type: paroxysmal Hyperlipidemia E78.5 Hyperlipidemia type: unspecified GERD (gastroesophageal reflux disease) K21.9 Esophagitis presence: esophagitis presence not specified
--- NOTE | 2020-03-15 08:23 | PC.NURSE ---
SEIZURE LIKE ACTIVITY PATIENT CONTINUE TO HAVE SEIZURE LIKE ACTIVITY CONSISTING OF BODY SHAKING AND HEAD TURNING TO FAR LEFT. ALL EXTREMITIES APPEAR TO BE INVOLUNTARILY SHAKING. PT RECOVERS AND HAS NO RECOLECTION OF WHAT HAS OCCURED. NEUROS REMAIN UNCHANGED. THIS IS THE 3RD SEIZURE WITH THE HOUR. MYSELF AND HEATING AND VENTILATING TENDER WITNESSED ALL EVENTS WE WERE REPOSITIONING PT AND CHANGING PATIENT. HEATING AND VENTILATING TENDER REMAINING WITH PATIENT AT THIS TIME TO ASSIST WITH FEEDING BREAKFAST. MARY, BRITTNY
--- NOTE | 2020-03-15 09:06 | PC.NURSE ---
SEIZURE LIKE ACTIVITY Patient has had seizures starting at 0908 03/15/2020, full body involvement lasting 8 seconds. FAYEW, TRACTOR ENGINE ASSEMBLER
[2020-03-15] MEDS: pantoprazole DR 40 mg Tablet PO ×2 (09:07→18:07)
[2020-03-15] MEDS: levothyroxine 150 mcg Tablet 75 MCG PO (09:07)
[2020-03-15] MEDS: levETIRAcetam 500 mg Tablet 750 MG PO ×2 (09:07→18:07)
[2020-03-15] MEDS: carvedilol 3.125 mg Tablet PO ×2 (09:08→18:07)
[2020-03-15] MEDS: cloNIDine 0.1 mg Tablet 0.2 MG PO ×3 (09:12→20:14)
[2020-03-15] MEDS: sodium bicarbonate 650 mg Tablet PO (09:12)
[2020-03-15] MEDS: sennosides-docusate Tablet 1 TAB PO ×2 (09:13→18:07)
--- NOTE | 2020-03-15 12:13 | PC.NURSE ---
SEIZURE LIKE ACTIVITY SEIZURE LIKE ACTIVITY Patient has had 140seizures starting at 1102 03/15/2020, full body involvement lasting 15-30 seconds CERAMIC ENGINEER and OT present during events. 8 of these episodes were with OT while feeding. BRITTNY HERNANDEZ
[2020-03-15] MEDS: TRAMadol 50 mg Tablet PO (16:15)
[2020-03-15] MEDS: ALPRAZolam 0.25 mg Tablet PO (20:13)
[2020-03-15] MEDS: donepezil 5 MG Tablet PO (20:18)
[2020-03-15] MEDS: diclofenac 1% Topical Gel 100 gm 1 APPLIC TOPICAL (20:21)
[2020-03-16] VITALS (9 sets, daily range): BP systolic 102–156; BP diastolic 51–77; PULSE 51–78; RESP 14–18; TEMP 36–37.2; O2SAT 91–99
[2020-03-16] MEDS: heparin 5,000 unit/mL INJ 1 mL 5000 UNIT SUBCUT ×2 (00:21→09:24)
[2020-03-16] MEDS: piperacillin-tazobactam 3.375 GM in sodium chloride 0.9% (plus) 50 ML IV (05:11)
--- NOTE | 2020-03-16 08:33 | P.DS_ITS ---
Discharge Providers Date of Admission: 03/13/20 16:02 Date of Discharge: March 16, 2020 Attending Provider at Admission: Halle Stanley MD Attending Provider at Discharge: Halle Stanley MD Primary Care Provider: Edwardo Poole MD Diagnoses at Discharge Discharge Diagnosis (1) Seizure-like activity: Status: Acute Problem details: -Witnessed seizure-like activity in the ER, with multiple additional episodes since admission. -No documented history of prior seizure-like activity, has not been on any AEDs other than Tegretol which had been added for pain control about 2-3 weeks ago per [facility] -Loaded with Keppra in ER, continue Keppra empirically for now -Seizure, fall precautions -Possibility that infection versus medication may have lowered her seizure threshold -Treatment of UTI as noted below -neurochecks -CT head shows no acute findings; noted mild to moderate small vessel changes consistent with moderate parenchymal volume loss, soft tissue edema of the left frontal scalp -1:1 monitoring requested as I am concerned about patient safety as well as noted inconsistency in presentation of symptoms -with continued inconsistency of symptoms and episodes, these are very suspicious for psychogenic nonepileptic seizures. -MRI head without contrast ordered; but unable to lay still long enough for appropriate images to be obtained (2) Bacterial UTI: Status: Inactive Problem details: -recently started on Cephalexin secondary to UTI as noted from recent UA done in ED (03/08) -repeat UA continues to be indicative of infection; this may have contributed to lower seizure threshold -urine cx: Pseudomonas aueriginosa; repeat urine cx: Pseudomonas aueriginosa, sensitivity noted -seems to have a hx of recurrent UTIs (3) CKD (chronic kidney disease) stage 4, GFR 15-29 ml/min: Status: Chronic Problem details: -has CKD stage 4, baseline Cr appears to be around 2.5-3 (4) Chronic pain: Status: Chronic Problem details: has morphine pain pump Qualifiers: Chronic pain type: other chronic pain Qualified Code(s): G89.29 - Other chronic pain (5) Hypothyroidism: Status: Chronic Problem details: -on levothyroxine Qualifiers: Hypothyroidism type: unspecified Qualified Code(s): E03.9 - Hypothyroidism, unspecified (6) Peripheral vascular disease: Status: Chronic (7) HTN (hypertension): Status: Chronic Qualifiers: Hypertension type: essential hypertension Qualified Code(s): I10 - Essential (primary) hypertension (8) Atrial fibrillation: Status: Chronic Problem details: -has known paroxymal atrial fibrillation -due to hx of GI bleed, is off Eliquis -telemetry monitoring -f/u with Dr. Ruiz -on metoprolol -currently rate controlled and NSR on telemetry Qualifiers: Atrial fibrillation type: paroxysmal Qualified Code(s): I48.0 - Paroxysmal atrial fibrillation (9) Hyperlipidemia: Status: Chronic Qualifiers: Hyperlipidemia type: unspecified Qualified Code(s): E78.5 - Hyperlipidemia, unspecified (10) GERD (gastroesophageal reflux disease): Status: Chronic Qualifiers: Esophagitis presence: esophagitis presence not specified Qualified Code(s): K21.9 - Gastro-esophageal reflux disease without esophagitis Other Information Additional DC diagnoses/information: -Anxiety, depression -NIDDM type II -Dementia -COPD, not oxygen dependent at baseline -suspect recent CVA given reported symptoms of R gaze preference, L-sided hemiparesis which clinically fits picture of CVA; however, with timeline, inconsistency of symptoms and no objective findings on CT head to correlate with this, makes picture complicated. Will order MRI if patient can tolerate this. Consider neurology outpatient follow-up -patient is prone to C.difficile colitis with antibiotic treatment; added probiotics Reason for Visit Reason for Visit: Reason For Visit: SEIZURE Hospital Course Hospital Course: Patient was admitted to the medical surgical floor and continued on antiepileptic medications in the form of IV Keppra. Seizure precautions were initiated and due to concern for multiple seizure-like events and safety one-on-one monitoring was started. Clinically patient was exhibiting left-sided hemiparesis including upper and lower extremity, right gaze preference and a vision deficit which were concerning for possible CVA. However she has had this symptoms for approximately 2 to 3 weeks with no noted changes on CT scan of which she has had 2 including during this admission. Also interestingly during her seizure-like episodes she was noted to be able to move her left upper and lower extremity, turn her head to the left without difficulty. She was also noted to be able to speak or mumble consistently during this episodes with no noted postictal period, which makes this events an episode suspicious for psychogenic nonepileptic seizures. MRI was attempted but unsuccessful as patient was not able to lay still long enough for usable images to be obtained. She has been maintained on antiepileptic medications which she is not receiving by mouth and will be continued on discharge. She has been started on aspirin and a statin for stroke prevention. She was noted to have a UA indicative of infection so has been covered with Zosyn as prior urine cultures grew pseudomonas aeruginosa and patient has a history of recurrent UTIs. Treatment was initiated in the event that this was contributing to her presentation. Repeat urine cultures have grown Pseudomonas though colony count is only 10-20,000 so will not be continuing antibiotics on discharge. I have had extensive conversations with patient's family explaining patient's clinical status and diagnoses. They have opted to seek alternative disposition and patient has been accepted at [facility] in [place] with patient's family providing transportation to this facility later today. She has been hemodynamically stable, particularly after adjustment of her blood pressure medications. I tried low-dose Coreg though patient became bradycardic so this will not be continued on discharge but due to patient's hx of atrial fibrillation, low dose metoprolol will be resumed for rate control. Patient does have a morphine pain pump that will need to be evaluated on her transition to SNF. She will also require continued follow-up with primary care provider and potentially neurology versus psychiatric evaluation if symptoms continue. She was evaluated by therapy during her hospital stay, her baseline ambulation status is conservative at best. She is at continued risk of fall so fall precautions should continue. She has intermittently required supplemental oxygen support which can be used for patient comfort and or to maintain her saturation at or above 92%. Discharge Summary: -Patient to follow-up with primary care provider once care is established at [facility] Physical Exam Const: COMMON NORMALS: no apparent distress, oriented x3 and alert GENERAL APPEARANCE: cooperative and comfortable ORIENTATION/CONSCIOUSNESS: Yes awake OTHER: -very restless, intermittently disoriented HENMT: COMMON NORMALS: normocephalic, head/scalp atraumatic, hearing grossly normal bilaterally and moist oral mucous membranes HEAD & SCALP: normocephalic and atraumatic OTHER: -head turned primarily to the R Eye: COMMON NORMALS: PERRL, EOMs intact bilaterally and conjunctivae normal CONJUNCTIVA: Yes conjunctivae normal PUPIL: Yes PERRL Neck/C-Spine: COMMON NORMALS: full ROM GENERAL: Yes normal visual inspection and Yes trachea midline Chest: COMMONS NORMALS: inspection of chest normal Resp: COMMON NORMALS: normal respiratory effort, no retractions and no use of accessory muscles EFFORT & INSPECTION: Yes able to speak in complete sentences, Yes symmetric chest movement and No tachypneic AUSCULTATION: diminished lung sounds OTHER: -on RA Cardio: COMMON NORMALS: regular rate, regular rhythm, S1 normal heart sound, S2 normal heart sound and no murmurs RATE: regular rate RHYTHM: regular rhythm HEART SOUNDS: S1 normal and S2 normal GI: COMMON NORMALS: normal to inspection, nondistended, normoactive bowel sounds, soft to palpation and non-tender PALPATION: Yes soft OTHER: -pain pump palpable in LLQ Extremity: COMMON NORMALS: normal to inspection, full ROM, no clubbing, cyanosis or edema and no pedal edema Neuro: COMMON NORMALS: oriented x3, moves all extremities, no focal motor deficits and no sensory deficits noted SENSORIUM/ORIENTATION: Yes alert SPEECH: speech normal OTHER: -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, appears to be flaccid on the L -R gaze preference -intermittent twitching and jerking movements of extremities including L upper and lower extremity Psych: COMMON NORMALS: mental status grossly normal, thought process normal and affect normal THOUGHT PROCESS: normal thought process Skin: COMMON NORMALS: no rashes or lesions noted, no jaundice, no petechiae and no mottling GENERAL SKIN EXAM: no rashes or lesions noted OTHER: - noted bruising of L side of face (fading) Discharge Data Data Completed and Pending: Completed Studies During Hospitalization Category Date Time Status CT head wo con* 7 0450 Stat Cat Scan 03/12/20 12:03 Completed XR chest 1V trace ble 23207 Stat Exams 03/12/20 12:03 Completed Pending at discharge Category Date Time Status Levetiracetam Kep pra Routine Lab 03/13/20 07:45 Received Vitals: Last Vital Signs Temp 98.6 F 03/16/20 07:41 Pulse 52 L 03/16/20 07:41 Resp 18 03/16/20 07:41 BP 156/73 03/16/20 07:41 Pulse Ox 99 03/16/20 07:41 Discharge Plan Discharge Patient Disposition: Xfer SNF Condition: Stable Prescriptions: New atorvastatin 40 mg Tablet 20 mg PO BEDTIME Qty: 30 RF: 0 clonidine HCl 0.1 mg Tablet 0.2 mg PO TID Qty: 30 RF: 0 levetiracetam 500 mg Tablet 750 mg PO BID 30 Days Qty: 90 RF: 0 aspirin 81 mg Tablet,Delayed Release (Dr/Ec) 81 mg PO DAILY Qty: 30 RF: 0 metoprolol tartrate 25 mg tablet 25 mg PO BID 30 Days Qty: 60 RF: 0 Continued Morphine Sulfate See Rx Instructions .ROUTE .COMPLEX RF: 0 cyclobenzaprine 10 mg tablet 10 mg PO Q8H PRN (Reason: Spasms) Qty: 30 RF: 0 potassium chloride 10 mEq capsule, extended release 10 meq PO DAILY Qty: 30 RF: 0 acetaminophen 325 mg tablet 650 mg PO Q8H PRN (Reason: Pain) Qty: 30 RF: 0 donepezil 5 mg tablet 5 mg PO BEDTIME Qty: 30 RF: 0 trazodone 50 mg tablet 50 mg PO BEDTIME Qty: 30 RF: 0 Senna-S 8.6-50 mg tablet 1 tab PO BID Qty: 60 RF: 0 tramadol 50 mg Tablet 50 mg PO Q6H PRN (Reason: Pain) Qty: 30 RF: 0 levothyroxine 75 mcg tablet 75 mcg PO DAILY Qty: 30 RF: 0 sodium bicarbonate 650 mg tablet 650 mg PO DAILY Qty: 30 RF: 0 amlodipine 10 mg tablet 10 mg PO DAILY Qty: 30 RF: 0 Dulcolax (bisacodyl) 10 mg Suppository 10 mg [place] PRN PRN (Reason: Constipation) Qty: 30 RF: 0 pantoprazole 40 mg tablet,delayed release (DR/EC) 40 mg PO BID Qty: 60 RF: 0 ferrous sulfate 325 mg (65 mg iron) Tablet 325 mg PO DAILY Qty: 30 RF: 0 furosemide 20 mg tablet 20 mg PO DAILY Qty: 30 RF: 0 Culturelle 10 billion cell Capsule 1 cap PO DAILY Qty: 30 RF: 0 ondansetron 4 mg tablet,disintegrating 4 mg PO TID PRN (Reason: NAUSEA/VOMITING) Qty: 30 RF: 0 duloxetine 60 mg capsule,delayed release(DR/EC) 60 mg PO DAILY Qty: 30 RF: 0 Refresh Celluvisc 1 % Dropperette,Gel 1 drp OPHTHALMIC (EYE) BID PRN (Reason: unknown) Qty: 15 RF: 0 Ocuvite with Lutein 1 tab PO DAILY Qty: 30 RF: 0 Changed alprazolam 0.25 mg tablet 0.25 mg PO BID PRN (Reason: Anxiety) Qty: 30 RF: 0 Voltaren 1 % Gel See Rx Instructions .ROUTE .COMPLEX PRN (Reason: Pain) Qty: 100 RF: 0 Discontinued clonidine HCl 0.1 mg Tablet 0.1 mg PO TID PRN (Reason: HTN) RF: 0 Keflex 500 mg Capsule 500 mg PO TID RF: 0 Discharge Orders: Discharge Order (Routine); Ordered 03/16/20 Ordered By: Halle Stanley Referrals: [facility] [Other] Discharge Diet: Cardiac Discharge Activity: Increase activity as tolerated Activity Restrictions/Additional Instructions: -Patient continues to be at risk for falls so please continue fall precautions -Patient may need supplemental oxygen which can be titrated to maintain her saturation at or above 92% or for patient comfort Discharge Attestations Time Spent in Discharge Care*: greater than 30 min Specific Discharge Activities: Specific discharge activities: educating patient, educating and/or supporting family/caregiver, discussing with director of casework department/social workers/dc planners, documenting/other paperwork and evaluating patient/reviewing data Status at Discharge: Cognitive status at discharge: cognitively intact , Behavioral status at discharge: cooperative , Functional status at discharge: other assisted ambulation Overall status at discharge: patient has a new baseline Quality Metrics Clinical Quality Measures During this hospital stay, did patient experience: None Coding Level of Care Code Acute [employer] for [employer] Diagnoses Seizure-like activity R56.9 Bacterial UTI N39.0; A49.9 CKD (chronic kidney disease) stage 4, GFR 15-29 ml/min N18.4 Chronic pain G89.29 Chronic pain type: other chronic pain Hypothyroidism E03.9 Hypothyroidism type: unspecified Peripheral vascular disease I73.9 HTN (hypertension) I10 Hypertension type: essential hypertension Atrial fibrillation I48.0 Atrial fibrillation type: paroxysmal Hyperlipidemia E78.5 Hyperlipidemia type: unspecified GERD (gastroesophageal reflux disease) K21.9 Esophagitis presence: esophagitis presence not specified
[2020-03-16] MEDS: levETIRAcetam 500 mg Tablet 750 MG PO (09:21)
[2020-03-16] MEDS: sodium bicarbonate 650 mg Tablet PO (09:22)
[2020-03-16] MEDS: cloNIDine 0.1 mg Tablet 0.2 MG PO (09:23)
[2020-03-16] MEDS: levothyroxine 150 mcg Tablet 75 MCG PO (09:23)
[2020-03-16] MEDS: amlodipine 10 mg Tablet PO (09:24)
[2020-03-16] MEDS: pantoprazole DR 40 mg Tablet PO (09:24)
[2020-03-16] MEDS: lactobacillus 1 Tablet 1 TAB PO (09:24)
[2020-03-16] MEDS: ferrous sulfate EC 325 mg Tablet PO (09:24)
[2020-03-16] MEDS: sennosides-docusate Tablet 1 TAB PO (09:24)
[2020-03-16] MEDS: carvedilol 3.125 mg Tablet PO (09:24)
[2020-03-16] MEDS: FUROsemide 20 mg Tablet PO (09:24)
[2020-03-16] MEDS: aspirin 81 mg EC Tablet PO (09:28)
--- NOTE | 2020-03-16 09:35 | PC.SOCIAL ---
IMM Verbally discussed IMM over the phone with patient's daughter, Quiana. She verbalizes understanding. Copy placed in patient's room. Initialed, dated, and timed and placed in chart.
[2020-03-16] MEDS: HYDROcodone-acetaminophen 5-325 mg Tablet 1 TAB PO (11:55)
[2020-03-19 17:22] LABS: Levetiracetam Keppra 34.3 mcg/mL
== END 2020-03-16 13:06 | disposition skilled nursing facility (03) | DRG 101 ==
LOC: ER 14:11 → MEDSURG 14:12
PROVIDERS: Admitting Provider Family Medicine; Emergency Provider Family Medicine; Family Provider Family Medicine; PCP Family Medicine; Visit Provider Family Medicine
DX: G40.89 Other seizures (principal); N18.4 Chronic kidney disease, stage 4 (severe); E87.1 Hypo-osmolality and hyponatremia; N39.0 Urinary tract infection, site not specified; I10 Essential (primary) hypertension; E78.5 Hyperlipidemia, unspecified; E03.9 Hypothyroidism, unspecified; E11.22 Type 2 diabetes mellitus with diabetic chronic kidney disease; I12.9 Hypertensive chronic kidney disease with stage 1 through stage 4 chronic kidney disease, or unspecified chronic kidney disease; I48.0 Paroxysmal atrial fibrillation; Z87.440 Personal history of urinary (tract) infections; D64.9 Anemia, unspecified; F41.9 Anxiety disorder, unspecified; G89.29 Other chronic pain; J44.9 Chronic obstructive pulmonary disease, unspecified; F03.90 Unspecified dementia, unspecified severity, without behavioral disturbance, psychotic disturbance, mood disturbance, and anxiety; Z86.718 Personal history of other venous thrombosis and embolism; K21.9 Gastro-esophageal reflux disease without esophagitis; E11.51 Type 2 diabetes mellitus with diabetic peripheral angiopathy without gangrene; I25.2 Old myocardial infarction; Z87.891 Personal history of nicotine dependence; Z79.891 Long term (current) use of opiate analgesic; B96.5 Pseudomonas (aeruginosa) (mallei) (pseudomallei) as the cause of diseases classified elsewhere
CPT/HCPCS: 12345; 36415; 70450; 71045; 80048; 80053; 80177; 81001; 82550; 85025; 87077; 87086; 87186; 93005; 96372; 96375; 97110; 97163; 97167; 97530; 97535; 99284; G0378; J0696; J1644; J1953; J2060; J2270; J2543; J7030